=== PATIENT | female | born 1980 | race Caucasian/White ===

== ENCOUNTER 2019-12-24 07:00 | Outpatient (CLI) | payer OTHER, SELFPAY ==
[2019-12-24 08:01] LABS: Alanine Aminotransferase 69 U/L (4-35); Albumin Level 4.5 g/dL (3.5-5.1); Alkaline Phosphatase 94 U/L (38-126); Aspartate Amino Transferase 39 U/L (14-36); Bilirubin,Total 0.4 mg/dL (0.2-1.3); Blood Urea Nitrogen 12 mg/dL (7-17); Calcium 9.6 mg/dL (8.4-10.2); Carbon Dioxide 29 mmol/L (22-30); Chloride 102 mmol/L (98-107); Cholesterol 136 mg/dL (0-200); Estimated Glomerular Filt Rate > 60; Glucose 97 mg/dL (65-105); HDL Direct 41 mg/dL; Potassium 3.9 mmol/L (3.4-5.0); Sodium 141 mmol/L (137-145); Triglycerides 58 mg/dL (<150)
[2019-12-24 08:11] LABS: LDL Cholesterol Direct 84 mg/dL
== END 2019-12-24 07:01 | disposition home or self-care (01) ==
PROVIDERS: PCP Family Medicine; Visit Provider Family Medicine
DX: Z00.00 Encounter for general adult medical examination without abnormal findings (principal)
CPT/HCPCS: 36415; 80053; 80061

== ENCOUNTER 2019-12-25 06:57 | Outpatient (CLI) | payer OTHER, SELFPAY ==
[2019-12-25 07:36] LABS: Basophils Absolute Auto 0.1 K/mm3 (0.0-0.1); Eosinophils Absolute Auto 0.2 K/mm3 (0-0.3); Eosinophils Percent Auto 3.2 % (0-4.4); Hematocrit 40.3 % (37.0-47.0); Hemoglobin 13.3 g/dL (12.0-15.0); Immature Granulocyte Absolute 0.01 K/mm3 (0.00-0.031); Immature Granulocyte Percent A 0.1 % (0-0.5); Lymphocytes Absolute Auto 2.17 K/mm3 (0.9-3.2); Lymphocytes Percent Auto 29.8 % (18.3-44.2); Mean Corpuscular Hemoglobin 28.4 pg (26-34); Mean Corpuscular Volume 85.9 fl (80-100); Mean Platelet Volume 10.1 fl (7.4-10.4); Monocytes Absolute Auto 0.6 K/mm3 (0.1-0.6); Neutrophils Absolute Auto 4.2 K/mm3 (1.3-6.7); Neutrophils Percent Auto 57.9 % (45.5-73.1); Platelet Count Result 332 k/mm3 (150-375); Red Blood Count 4.69 M/mm3 (4.2-5.4); Red Cell Distribution Width 12.8 % (11.5-14.5); White Blood Count 7.3 K/mm3 (4.5-10.0)
== END 2019-12-25 06:58 | disposition home or self-care (01) ==
PROVIDERS: PCP Family Medicine; Visit Provider Family Medicine
DX: Z00.00 Encounter for general adult medical examination without abnormal findings (principal)
CPT/HCPCS: 36415; 85025

== ENCOUNTER → 2020-05-26 15:47 | Outpatient (CLI) | payer OTHER, SELFPAY ==
--- NOTE | ~2020-05-26 | MM_ITS ---
EXAMINATION: MM screening [facility] BI w yomaira HISTORY: Screening mammogram TECHNIQUE: Craniocaudal and mediolateral oblique 3-D tomosynthesis images were obtained and synthetic 2-D images were generated. CAD analysis was submitted and interpreted. COMPARISON: Comparison to multiple prior studies sequentially, with oldest reviewed study dated 06/2017. BREAST PARENCHYMAL COMPOSITION: There are scattered areas of fibroglandular density. FINDINGS: There is no evidence of suspicious mass, calcification, or architectural distortion to sugg est malignancy in either breast. There has been no suspicious interval change. IMPRESSION: 1. No mammographic evidence of malignancy. 2. Recommend routine screening mammography in one year. BI-RADS Category 1: Negative Reviewed, dictated and finalized at location A.
== END ==
PROVIDERS: PCP Family Medicine; Visit Provider Obstetrics & Gynecology
DX: Z12.31 Encounter for screening mammogram for malignant neoplasm of breast (principal)
CPT/HCPCS: 77063; 77067

== ENCOUNTER 2020-08-13 09:21 | Outpatient (CLI) | payer OTHER, SELFPAY ==
[2020-08-13 09:43] LABS: Basophils Absolute Auto 0.1 K/mm3 (0.0-0.1); Basophils Percent Auto 0.6 % (0.2-1.2); Eosinophils Absolute Auto 0.1 K/mm3 (0-0.3); Eosinophils Percent Auto 1.5 % (0-4.4); Hematocrit 36.9 % (37.0-47.0); Hemoglobin 12.4 g/dL (12.0-15.0); Immature Granulocyte Absolute 0.03 K/mm3 (0.00-0.031); Immature Granulocyte Percent A 0.4 % (0-0.5); Lymphocytes Absolute Auto 2.23 K/mm3 (0.9-3.2); Lymphocytes Percent Auto 27.2 % (18.3-44.2); Mean Corpuscular HGB Conc 33.6 g/dl (32-36); Mean Corpuscular Volume 86.4 fl (80-100); Mean Platelet Volume 9.4 fl (7.4-10.4); Monocytes Absolute Auto 0.8 K/mm3 (0.1-0.6); Monocytes Percent Auto 9.4 % (2.6-8.5); Neutrophils Percent Auto 60.9 % (45.5-73.1); Platelet Count Result 368 k/mm3 (150-375); Red Blood Count 4.27 M/mm3 (4.2-5.4); Red Cell Distribution Width 12.7 % (11.5-14.5); White Blood Count 8.2 K/mm3 (4.5-10.0)
[2020-08-13 10:20] LABS: Alanine Aminotransferase 21 U/L (4-35); Albumin Level 4.5 g/dL (3.5-5.1); Alkaline Phosphatase 78 U/L (38-126); Anion Gap 9 mmol/L (8-16); Aspartate Amino Transferase 27 U/L (14-36); Bilirubin,Total 0.3 mg/dL (0.2-1.3); Blood Urea Nitrogen 15 mg/dL (7-17); Calcium 9.7 mg/dL (8.4-10.2); Carbon Dioxide 29 mmol/L (22-30); Chloride 103 mmol/L (98-107); Estimated Glomerular Filt Rate > 60; Glucose 81 mg/dL (65-105); Magnesium 2.3 mg/dL (1.6-2.3); Potassium 3.9 mmol/L (3.4-5.0); Sodium 141 mmol/L (137-145)
== END 2020-08-13 09:22 | disposition home or self-care (01) ==
PROVIDERS: PCP Family Medicine; Visit Provider Family Medicine
DX: R25.3 Fasciculation (principal); R74.01 Elevation of levels of liver transaminase levels
CPT/HCPCS: 36415; 80053; 82248; 83735; 85025

== ENCOUNTER 2020-08-21 22:05 | Emergency (ER) | payer OTHER, SELFPAY ==
[2020-08-21 22:07] VITALS: BP 143/68; PULSE 96; RESP 17; TEMP 36.6; O2SAT 100
[2020-08-21 22:18] VITALS: BP 133/81; PULSE 83; RESP 16; TEMP 36.9; O2SAT 100
--- NOTE | 2020-08-21 23:06 | ED.NEUROSD ---
HPI - Neuro Symptoms/Deficit General Chief Complaint: Neuro Symptoms/Deficit Stated Complaint: twitching all over Time Seen by Provider: 08/21/20 22:34 Source: patient Mode of arrival: ambulatory Limitations: no limitations History of Present Illness HPI Narrative: 39-year-old female She notes that for a couple weeks she has been experiencing muscle twitching and fasciculations She reports that this involves both arms both legs and facial and periocular muscles at various times There is no weakness She cannot identify any triggers such as stress or alcohol or caffeine or decongestant use They are self-limited and there is never any alteration in consciousness such as with a seizure with any of the episodes There are no visual symptoms She came in the ER today because of an episode that seemed to be more localized in the right arm and associated with some paresthesias on the right side which is now resolved She is consulted with her primary care doctor and 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 about this and has had some lab tests done which cannot be accessed here but which she understands to be normal She is supposed to be referred to neurology but states that her doctor wanted to wait a few more days Her only medications are for hypertension and a statin Related Data Home Medications Medication Instructions Recorded Confirmed amlodipine 5 mg PO DAILY 08/21/20 08/21/20 lisinopril-hydrochlorothiazide 1 tablet PO DAILY 08/21/20 norgestrel-ethinyl estradiol 1 tablet PO DAILY 08/21/20 [Low-Ogestrel (28)] Allergies Allergy/AdvReac Type Severity Reaction Status Date / Time diphenoxylate Allergy Intermediate SWELLING Unverified 04/23/19 09:53 OF JOINTS cefaclor Allergy Unknown Verified 01/23/18 16:05 codeine Allergy Unknown Verified 03/17/17 13:24 Sulfa (Sulfonamide Allergy Unknown Verified 03/17/17 13:24 Antibiotics) Review of Systems Review of Systems: All systems reviewed & are unremarkable except as noted in HPI and below Constitutional: Constitutional: Denies chills, Denies fatigue, Denies fever(s), Denies headache(s) and Denies night sweats Eyes: Eyes: Denies change in vision, Denies loss of vision and Denies other visual disturbances ENT: Denies headache(s), Denies hoarseness, Denies nasal congestion and Denies sore throat Cardiovascular: Cardiovascular: Denies chest pain, Denies leg edema, Denies palpitations and Denies dyspnea Respiratory: Respiratory: Denies cough and Denies dyspnea Gastrointestinal: Gastrointestinal: Denies diarrhea and Denies vomiting Genitourinary: Genitourinary: Denies urinary frequency Musculoskeletal: Musculoskeletal: Denies abnormal gait, Denies back pain, Denies myalgias, Denies deformity, Denies joint swelling, Denies muscle weakness and Denies numbness Integumentary/Breasts: Skin/Breast: Denies rash, Denies unusual bruising and Denies wounds Neurologic: Denies abnormal gait, Denies headache(s), Denies focal weakness, Denies loss of vision and Reports numbness Psychiatric: Psychiatric: Reports no additional psychiatric complaints Endocrine: Endocrine: Denies fatigue and Denies palpitations Hematologic/Lymphatic: Hematologic/Lymphatic: Denies easy bleeding and Denies easy bruising Allergic/Immunologic: Allergic/Immunologic: Denies wheezing PMFSH Family History Family History (Updated 03/30/19 @ 16:01 by DOCTOR UNKNOWN) Other Family history of allergic disorder Family history of cardiovascular disease Family history of malignant neoplasm Hypertension Social History Social History Smoking status: Never smoker Alcohol intake: current Gender identity (if verbalized by the patient): Female Exam Const: General: healthy appearing, no acute distress and alert Nutritional Appearance: well nourished Orientation/consciousness: patient oriented x3 Limitations: no limitations HENMT: Head: normocephalic and atraumatic Ears: external ears
[2020-08-21 23:20] LABS: Basophils Absolute Auto 0.1 K/mm3 (0.0-0.1); Basophils Percent Auto 0.6 % (0.2-1.2); Eosinophils Absolute Auto 0.2 K/mm3 (0-0.3); Eosinophils Percent Auto 1.4 % (0-4.4); Hematocrit 37.9 % (37.0-47.0); Hemoglobin 12.6 g/dL (12.0-15.0); Immature Granulocyte Absolute 0.03 K/mm3 (0.00-0.031); Immature Granulocyte Percent A 0.3 % (0-0.5); Lymphocytes Absolute Auto 2.44 K/mm3 (0.9-3.2); Lymphocytes Percent Auto 23.6 % (18.3-44.2); Mean Corpuscular HGB Conc 33.2 g/dl (32-36); Mean Corpuscular Hemoglobin 28.6 pg (26-34); Mean Corpuscular Volume 86.1 fl (80-100); Mean Platelet Volume 9.5 fl (7.4-10.4); Monocytes Percent Auto 9.7 % (2.6-8.5); Neutrophils Absolute Auto 6.7 K/mm3 (1.3-6.7); Neutrophils Percent Auto 64.4 % (45.5-73.1); Platelet Count Result 376 k/mm3 (150-375); Red Cell Distribution Width 12.6 % (11.5-14.5); White Blood Count 10.4 K/mm3 (4.5-10.0)
[2020-08-21 23:34] LABS: Alanine Aminotransferase 18 U/L (4-35); Albumin Level 4.3 g/dL (3.5-5.1); Alkaline Phosphatase 73 U/L (38-126); Anion Gap 9 mmol/L (8-16); Aspartate Amino Transferase 24 U/L (14-36); Bilirubin,Total 0.2 mg/dL (0.2-1.3); Blood Urea Nitrogen 15 mg/dL (7-17); Calcium 9.7 mg/dL (8.4-10.2); Carbon Dioxide 30 mmol/L (22-30); Chloride 103 mmol/L (98-107); Estimated CRCL calculation 98 ml/min; Estimated Glomerular Filt Rate > 60; Glucose 101 mg/dL (65-105); Magnesium 2.2 mg/dL (1.6-2.3); Potassium 3.9 mmol/L (3.4-5.0); Sodium 142 mmol/L (137-145)
[2020-08-22 00:17] VITALS: BP 128/80; PULSE 77; RESP 14; TEMP 36.6; O2SAT 100
== END 2020-08-22 00:18 | disposition home or self-care (01) ==
PROVIDERS: Emergency Provider Emergency Medicine; PCP Family Medicine
DX: R25.3 Fasciculation (principal); I10 Essential (primary) hypertension
CPT/HCPCS: 36415; 80053; 83735; 84436; 84443; 85025; 99283

== ENCOUNTER 2020-09-23 09:25 | Outpatient (NON) | payer OTHER, SELFPAY ==
[2020-09-24 14:04] LABS: SARS-CoV-2 RNA PCR Negative
== END 2020-09-23 09:26 ==
LOC: ANHCOVIDDT 09:26
PROVIDERS: PCP Family Medicine; Visit Provider Family Medicine
DX: R51.9 Headache, unspecified (principal); Z20.828 Contact with and (suspected) exposure to other viral communicable diseases
CPT/HCPCS: 87635; C9803; U0003

== ENCOUNTER 2020-10-01 01:09 | Day surgery (SDC) | payer OTHER, SELFPAY ==
[2020-09-30 15:38] VITALS: BMI 35.4
--- NOTE | 2020-09-30 16:05 | PM.IMHP ---
H&P: HPI History of Present Illness Date/Time: 09/30/20 16:05 Chief complaint: Excessive Bleeding Narrative: Charlette Montero is a 39 year old female She will to be 3-year-old 0 through 2 status post section x2 who is admitted for hysteroscopy D&C. She has had heavy bleeding for quite some time. She had been on oral contraceptives. Taken thinking she control means or ever she began bleeding for 13 the period. The last 6 days she has been on the pill and is not moving and she continues to bleed with clots. Risks and benefits of this procedure reviewed in full Review of Systems Review of Systems: All systems reviewed & are unremarkable except as noted in HPI and below PMFSH Family History Family History Other Family history of allergic disorder Family history of cardiovascular disease Family history of malignant neoplasm Hypertension Social History Social History Smoking status: Never smoker Alcohol intake: current Drinks per week: 3 Substance use: never Living arrangements: with family Additional living arrangements comments: SPOUSE AND 3 CHILDREN Gender identity (if verbalized by the patient): Female Spiritual care concerns: No Meds Home Medications and Allergies Home Medications Medication Instructions Recorded Confirmed Type amlodipine 5 mg PO QAM 08/21/20 09/30/20 History lisinopril-hydrochlorothiazide 1 tablet PO QAM 08/21/20 09/30/20 History ezetimibe 10 mg PO QAM 09/30/20 09/30/20 History loratadine [Claritin] 10 mg PO DAILY 09/30/20 09/30/20 History multivitamin [Multi-Vitamin] 1 tablet PO DAILY 09/30/20 09/30/20 History norethindrone-ethin estradiol 1 tablet PO DAILY 09/30/20 09/30/20 History [Nortrel (28)] Allergies Allergy/AdvReac Type Severity Reaction Status Date / Time cefaclor Allergy Unknown Rash Verified 09/30/20 15:33 Sulfa (Sulfonamide Allergy Unknown Rash Verified 09/30/20 15:33 Antibiotics) diphenoxylate AdvReac Intermediate SWELLING Unverified 09/30/20 15:33 OF JOINTS ciprofloxacin AdvReac Unknown JOINT Verified 09/30/20 15:33 SWELLING Exam Const: General: no acute distress Eyes: General: appearance normal, both eyes and all related structures Neck: Neck: supple and no JVD Thyroid: thyroid normal Resp: Effort & Inspection: normal respiratory effort Auscultation: clear to auscultation bilaterally Cardio: Rate: regular rate Rhythm: regular rhythm GI: Inspection: non-distended GI Palp: Yes Soft to palpation, No Tenderness to palpation present (GI) and No Guarding due to palpation present (GI) Auscultation: normal bowel sounds : General: Yes bladder normal to inspection External Female Exam: normal external appearance Speculum Exam - Cervix: normal appearance of the cervix Bimanual exam- vagina & uterus: enlarged Bimanual Exam- Adnexa, other: other ( heavy bleeding present) Skin: General skin exam: no rashes or lesions noted Extrem: General: normal to inspection and no edema Psych: Mental Status: mental status grossly normal Affect: normal affect Assessment and Plan Additional Plan the. Impression: IV bleeding a pressure medical her curetting min Plan: Hysteroscopy / dilatation curettage
[2020-10-01 06:20] VITALS: BP 138/70; PULSE 96; RESP 20; TEMP 36.1; O2SAT 98
--- NOTE | 2020-10-01 06:25 | WPDHPUPDATE1 ---
History and Physical Update Update Date/Time: 10/01/20 06:25 History and Physical has been reviewed, including an updated exam of the patient. There are NO changes in the patient's condition. Risks, benefits, and alternatives have been discussed and questions answered. Patient agrees to proceed with procedure.
--- NOTE | 2020-10-01 06:39 | WPDANESEPPF ---
Anes - Initial Pre Proc Eval Procedure: Operation Date: 10/01/20 07:30 Proposed Procedures p Hysteroscopy, Dilation And Curettage - Mark Guerrero MD Date/Time: 10/01/20 06:40 Surgeon: Mark Guerrero MD Pre Op Diagnosis: Excessive Bleeding Patient Data Age: 39 Gender: F Height: 1.75 m Weight: 109 kg Allergies Allergy/AdvReac Type Severity Reaction Status Date / Time cefaclor Allergy Unknown Rash Verified 09/30/20 15:33 Sulfa (Sulfonamide Allergy Unknown Rash Verified 09/30/20 15:33 Antibiotics) diphenoxylate AdvReac Intermediate SWELLING Unverified 09/30/20 15:33 OF JOINTS ciprofloxacin AdvReac Unknown JOINT Verified 09/30/20 15:33 SWELLING Home Medications Medication Instructions Recorded Confirmed Type amlodipine 5 mg PO QAM 08/21/20 09/30/20 History lisinopril-hydrochlorothiazide 1 tablet PO QAM 08/21/20 09/30/20 History ezetimibe 10 mg PO QAM 09/30/20 09/30/20 History loratadine [Claritin] 10 mg PO DAILY 09/30/20 09/30/20 History multivitamin [Multi-Vitamin] 1 tablet PO DAILY 09/30/20 09/30/20 History norethindrone-ethin estradiol 1 tablet PO DAILY 09/30/20 09/30/20 History [Nortrel / (28)] hydrocodone-acetaminophen [[place]] 1 tablet PO Q4H PRN #20 tablet 10/01/20 Rx Patient hx anesthesia problems: none Family hx anesthesia problems: none PMFSH Past Medical History Medical History (Updated 10/01/20 @ 06:40 by Ruiz Alvares DO) Anxiety Hyperlipidemia Hypertension Palpitations Surgical History Surgical History (Updated 10/01/20 @ 06:40 by Ruzi Alvares DO) History of Family History Family History Other Family history of allergic disorder Family history of cardiovascular disease Family history of malignant neoplasm Hypertension Social History Social History Smoking status: Never smoker Alcohol intake: current Drinks per week: 3 Substance use: never Living arrangements: with family Additional living arrangements comments: SPOUSE AND 3 CHILDREN Gender identity (if verbalized by the patient): Female Spiritual care concerns: No Anes - Eval Final PreProcedure Day of Procedure 10/01/20 06:40 Patient weight: obese Heart: regular rate and rhythm Lungs: clear to auscultation and normal air movement Airway: Mallampati scale class II Neurological: alert and oriented Last oral intake: >/= 8 hours ASA classification: II Emergent: no Anesthetic plan: proceed Anesthesia type and monitoring: general GIVS and standard monitoring Informed Consent: The patient's anesthetic plan and its attendant risks and benefits were discussed with the patient/family/POA. Questions were solicited and answers provided to the satisfaction of the patient/family/POA.
[2020-10-01] MEDS: LACTATED RINGERS 1,000 ML 30 ML IV CONT (06:45)
[2020-10-01] MEDS: ACETAMINOPHEN 500 MG TABLET 1000 MG PO (06:52)
[2020-10-01] MEDS: LIDOCAINE HCL 1% LOCAL INJ 20 ML VIAL 10 ML INFILTRATE (07:28)
--- NOTE | 2020-10-01 07:37 | PM.PROC ---
Procedure Note - Detailed Date of procedure: 10/01/20 Pre-op diagnosis: Excessive Bleeding Surgeon: Mark Guerrero MD Postop diagnosis: Excessive bleeding next Procedure: Hysteroscopy / dilatation curettage EBL: 25cc Anesthesia: IV sedation and local Complications: None Findings: Large clots and the uterus sounded to 10cm. Thick endometrial tissue. Description of procedure: Patient was prepped and draped in normal sterile fashion placed in the dorsal lithotomy position. Under excellent IV sedation weighted speculum placed in posterior fornix of vagina. Anterior lip of the cervix grasped with single-tooth tenaculum and 2.5cc 1% xylocaine anesthesia placed at 2, 4, 8, 10:00 a.m. of the cervix. Uterus sounded to 10cm. Serial dilatation with fragmented dilators performed followed by passage of the 5mm visualizing hysteroscope. Normal saline was used as visualizing medium. Large clots were seen and the is generally very bloody anterior of the endometrium. The uterus was then scraped over the entire 360? STEPH large amount of clots thick endometrial tissue. When a good grating sound was heard the procedure was finished. All sponge, needle, instrument counts were correct. Blood loss estimated at25cc. There were no immediate complications
[2020-10-01 07:44] VITALS: BP 102/48; PULSE 97; RESP 12; O2SAT 97
[2020-10-01 08:10] VITALS: BP 115/66; PULSE 78; RESP 12; O2SAT 97
[2020-10-01 08:35] VITALS: BP 116/67; PULSE 75; RESP 14
== END 2020-10-01 08:48 | disposition home or self-care (01) ==
PROVIDERS: PCP Family Medicine; Visit Provider Obstetrics & Gynecology
PROC: 0U5B8ZZ Destruction of Endometrium, Via Natural or Artificial Opening Endoscopic (ICD-10-PCS; CPT 58563; principal; 2020-10-01 07:30)
DX: N93.9 Abnormal uterine and vaginal bleeding, unspecified (principal); N85.8 Other specified noninflammatory disorders of uterus; E78.5 Hyperlipidemia, unspecified; I10 Essential (primary) hypertension; F41.9 Anxiety disorder, unspecified; E66.9 Obesity, unspecified; Z68.35 Body mass index [BMI] 35.0-35.9, adult
CPT/HCPCS: 58558; 88305; A9270; J2250; J2704; J3010; J7030; J7120

== ENCOUNTER 2020-10-27 07:04 | Outpatient (NON) | payer OTHER, SELFPAY ==
[2020-10-27 22:00] LABS: SARS-CoV-2 RNA PCR Negative
== END 2020-10-27 07:05 ==
PROVIDERS: PCP Family Medicine; Visit Provider Family Medicine
DX: R05 Cough (principal); Z20.828 Contact with and (suspected) exposure to other viral communicable diseases
CPT/HCPCS: 87635; C9803; U0003

== ENCOUNTER → 2020-12-26 06:51 | Outpatient (CLI) | payer OTHER, SELFPAY ==
[2020-12-26 21:58] LABS: SARS-CoV-2 RNA PCR Positive
== END ==
PROVIDERS: PCP Family Medicine; Visit Provider Family Medicine
DX: U07.1 COVID-19 (principal)
CPT/HCPCS: C9803; U0003; U0005

== ENCOUNTER 2021-01-20 07:28 | Outpatient (CLI) | payer OTHER, SELFPAY ==
[2021-01-20 07:53] LABS: Basophils Absolute Auto 0.1 K/mm3 (0.0-0.1); Basophils Percent Auto 0.6 % (0.2-1.2); Eosinophils Absolute Auto 0.2 K/mm3 (0-0.3); Eosinophils Percent Auto 1.7 % (0-4.4); Hematocrit 35.1 % (37.0-47.0); Hemoglobin 11.4 g/dL (12.0-15.0); Immature Granulocyte Absolute 0.02 K/mm3 (0.00-0.031); Immature Granulocyte Percent A 0.2 % (0-0.5); Lymphocytes Absolute Auto 2.32 K/mm3 (0.9-3.2); Lymphocytes Percent Auto 26.3 % (18.3-44.2); Mean Corpuscular HGB Conc 32.5 g/dl (32-36); Mean Corpuscular Hemoglobin 26.3 pg (26-34); Mean Corpuscular Volume 81.1 fl (80-100); Mean Platelet Volume 9.4 fl (7.4-10.4); Monocytes Absolute Auto 0.8 K/mm3 (0.1-0.6); Monocytes Percent Auto 9.2 % (2.6-8.5); Neutrophils Absolute Auto 5.5 K/mm3 (1.3-6.7); Platelet Count Result 412 k/mm3 (150-375); Red Blood Count 4.33 M/mm3 (4.2-5.4); Red Cell Distribution Width 13.6 % (11.5-14.5); White Blood Count 8.8 K/mm3 (4.5-10.0)
[2021-01-20 08:05] LABS: Alanine Aminotransferase 29 U/L (4-35); Alkaline Phosphatase 71 U/L (38-126); Anion Gap 7 mmol/L (8-16); Aspartate Amino Transferase 24 U/L (14-36); Bilirubin,Total 0.2 mg/dL (0.2-1.3); Blood Urea Nitrogen 14 mg/dL (7-17); Carbon Dioxide 28 mmol/L (22-30); Chloride 105 mmol/L (98-107); Cholesterol 182 mg/dL (0-200); Estimated Glomerular Filt Rate > 60; Glucose 95 mg/dL (65-105); HDL Direct 38 mg/dL; Potassium 3.8 mmol/L (3.4-5.0); Sodium 140 mmol/L (137-145); Triglycerides 122 mg/dL (<150)
[2021-01-20 08:16] LABS: LDL Cholesterol Direct 112 mg/dL
== END 2021-01-20 07:29 | disposition home or self-care (01) ==
PROVIDERS: PCP Internal Medicine; Visit Provider Internal Medicine
DX: E78.5 Hyperlipidemia, unspecified (principal); I10 Essential (primary) hypertension; Z00.00 Encounter for general adult medical examination without abnormal findings
CPT/HCPCS: 36415; 80053; 80061; 85025

== ENCOUNTER 2021-02-10 07:04 | Outpatient (CLI) | payer OTHER, SELFPAY ==
[2021-02-10 08:31] LABS: Iron 88 ug/dL (37-170)
[2021-02-10 08:43] LABS: Percent Iron Saturation 22 % (20-50)
[2021-02-10 09:09] LABS: Ferritin 7.29 ng/mL (6.24-137)
[2021-02-13 13:39] LABS: Lyme Disease Ab (IgM), Blot Negative (Negative); Lyme Disease Ab(IgG), Blot Negative (Negative)
== END 2021-02-10 07:05 | disposition home or self-care (01) ==
PROVIDERS: PCP Internal Medicine; Visit Provider Internal Medicine
DX: R25.3 Fasciculation (principal); D64.9 Anemia, unspecified
CPT/HCPCS: 36415; 82607; 82728; 83540; 83550; 86617

== ENCOUNTER 2021-02-28 09:54 | Observation (INO) | payer OTHER, SELFPAY ==
[2021-02-28] VITALS (11 sets, daily range): BP systolic 86–135; BP diastolic 45–72; PULSE 77–112; RESP 11–18; TEMP 36.4–37.2; O2SAT 96–100
--- NOTE | 2021-02-28 10:17 | ED.GENADULT ---
HPI - General Adult General Chief complaint: Vaginal Bleeding Stated complaint: Vaginal Bleeding Time Seen by Provider: 02/28/21 10:01 Source: patient Mode of arrival: ambulatory Limitations: no limitations History of Present Illness HPI narrative: Patient presents for evaluation of vaginal bleeding. She has a history of fibroids and underwent D&C last year. She is a planned hysterectomy in March of this year. It was initially planned for November of this year but she needed to reschedule due to some family issues. She is currently on OC to help with bleeding. In the past she was offered tranexamic acid, which she declined. She is not anticoagulated and not on any NSAIDs. She says bleeding has been present for the last 10 days. She is going through 1 pad per hour. She did have some pelvic cramping earlier in the week but that has since resolved. She also reports some rectal pain. No fever, chills, nausea, vomiting. Surgical history positive for x2. Denies any urinary symptoms or vaginal discharge. She is sexual monogamous with her . 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 Related Data Home Medications Medication Instructions Recorded Confirmed amlodipine 5 mg PO QAM 08/21/20 10/01/20 lisinopril-hydrochlorothiazide 1 tablet PO QAM 08/21/20 10/01/20 ezetimibe 10 mg PO QAM 09/30/20 10/01/20 loratadine [Claritin] 10 mg PO DAILY 09/30/20 10/01/20 multivitamin [Multi-Vitamin] 1 tablet PO DAILY 09/30/20 10/01/20 norethindrone-ethin estradiol 1 tablet PO DAILY 09/30/20 10/01/20 [Nortrel 1/35 (28)] Allergies Allergy/AdvReac Type Severity Reaction Status Date / Time cefaclor Allergy Unknown Rash Verified 02/28/21 10:13 Sulfa (Sulfonamide Allergy Unknown Rash Verified 02/28/21 10:13 Antibiotics) diphenoxylate AdvReac Intermediate SWELLING Verified 02/28/21 10:13 OF JOINTS ciprofloxacin AdvReac Unknown JOINT Verified 02/28/21 10:13 SWELLING Review of Systems Review of Systems: Narrative: CONSTITUTIONAL: Denies fever, chills, or sweats. EYES: Denies visual changes, redness, or discharge. ENT: Denies rhinorrhea, congestion, sore throat, or otalgia. CARDIOVASCULAR: Denies chest pain, palpitations, or edema. RESPIRATORY: Denies cough or dyspnea. GASTROINTESTINAL: Denies abdominal pain, nausea, vomiting, or diarrhea. Reports rectal pain GENITOURINARY: Denies dysuria or hematuria. Reports vaginal bleeding without any vaginal discharge SKIN: Denies rash or itching. MUSCULOSKELETAL: Denies back pain, joint pain, or myalgia. NEUROLOGIC: Denies headache, numbness, dizziness, or weakness. PSYCHIATRIC: Denies anxiety or depression. [facility] Past Medical History Medical History Anxiety Fibroids Hyperlipidemia Hypertension Palpitations Surgical History Surgical History History of Family History Family History Other Family history of allergic disorder Family history of cardiovascular disease Family history of malignant neoplasm Hypertension Social History Social History Smoking status: Never smoker Alcohol intake: current Drinks per week: 3 Substance use: never Additional living arrangements comments: SPOUSE AND 3 CHILDREN Gender identity (if verbalized by the patient): Female Spiritual care concerns: No Exam Narrative: Exam Narrative: GENERAL: Well-appearing, well-nourished, and in no acute distress. HEAD: Normocephalic, atraumatic. EYES: PERRLA and EOMI. ENT: Nares clear, no rhinorrhea or epistaxis. Mucous membranes moist. Oropharynx without tonsillar hypertrophy exudate or other lesions. Bilateral TMs pearly gómez nonbulging NECK: [place]
--- NOTE | 2021-02-28 10:32 | ECG_ITS ---
Measurements Intervals [place] Rate: 98 P: 57 WA: 163 QRS: -35 QRSD: 93 T: 33 QT: 328 QTc: 420 Interpretive Statements SINUS RHYTHM WITH SINUS ARRHYTHMIA LEFT AXIS DEVIATION DELAYED PRECORDIAL R/S TRANSITION BORDERLINE ECG Electronically Signed On 02-28-2021 12:07:50 CDT by Anton Hidalgo D.O.
[2021-02-28 10:39] LABS: Basophils Absolute Auto 0.1 K/mm3 (0.0-0.1); Basophils Percent Auto 0.5 % (0.2-1.2); Eosinophils Absolute Auto 0.1 K/mm3 (0-0.3); Eosinophils Percent Auto 1.2 % (0-4.4); Hematocrit 25.5 % (37.0-47.0); Hemoglobin 8.1 g/dL (12.0-15.0); Immature Granulocyte Absolute 0.03 K/mm3 (0.00-0.031); Immature Granulocyte Percent A 0.3 % (0-0.5); Lymphocytes Absolute Auto 2.25 K/mm3 (0.9-3.2); Lymphocytes Percent Auto 21.9 % (18.3-44.2); Mean Corpuscular HGB Conc 31.8 g/dl (32-36); Mean Corpuscular Hemoglobin 26.6 pg (26-34); Mean Corpuscular Volume 83.6 fl (80-100); Mean Platelet Volume 9.4 fl (7.4-10.4); Monocytes Absolute Auto 0.9 K/mm3 (0.1-0.6); Monocytes Percent Auto 8.9 % (2.6-8.5); Neutrophils Absolute Auto 6.9 K/mm3 (1.3-6.7); Neutrophils Percent Auto 67.2 % (45.5-73.1); Platelet Count Result 310 k/mm3 (150-375); Red Blood Count 3.05 M/mm3 (4.2-5.4); Red Cell Distribution Width 14.7 % (11.5-14.5); White Blood Count 10.3 K/mm3 (4.5-10.0)
[2021-02-28 10:47] LABS: Alanine Aminotransferase 20 U/L (4-35); Albumin Level 4.1 g/dL (3.5-5.1); Alkaline Phosphatase 72 U/L (38-126); Anion Gap 5 mmol/L (8-16); Aspartate Amino Transferase 23 U/L (14-36); Bilirubin,Total 0.2 mg/dL (0.2-1.3); Blood Urea Nitrogen 12 mg/dL (7-17); Calcium 9.1 mg/dL (8.4-10.2); Carbon Dioxide 28 mmol/L (22-30); Chloride 106 mmol/L (98-107); Estimated CRCL calculation 118 ml/min; Estimated Glomerular Filt Rate > 60; Glucose 88 mg/dL (65-105); Potassium 3.8 mmol/L (3.4-5.0); Sodium 139 mmol/L (137-145)
[2021-02-28 10:55] LABS: INR 0.9
[2021-02-28 10:56] LABS: Partial Thromboplastin Time 27.5 SECONDS (22.3-36.8)
[2021-02-28 10:59] LABS: Add Urine Microscopic? YES; Appearance Urine Cloudy (Clear); Bilirubin Urine Negative (Negative); Blood Urine 3+ (Negative); Color Urine Amber (Yellow); Glucose Urine UA Negative (Negative); Ketones Urine Negative (Negative); Leukocyte Esterase Ur 1+ LEU/UL (Negative); Nitrate Urine Negative (Negative); Protein Urine 2+ mg/dL (Negative); RBC Urine >75 /hpf (0-2); Specific Grav Ur 1.015 (1.001-1.035); Urobilinogen Urine Negative mg/dL (<2.0); WBC Urine >75 /hpf
--- NOTE | 2021-02-28 11:43 | WPDANESEPP ---
Anes - Eval Pre Procedure Procedure: hysteroscopy d and c Date/Time: 02/28/21 11:43 Surgeon: dean adrian Pre Op Diagnosis: Vaginal Bleeding Patient Data Age: 40 Gender: F Height: 1.75 m Weight: 102 kg Last Vital Signs Temp 36.5 C 02/28/21 10:13 Pulse 112 H 02/28/21 10:13 Resp 16 02/28/21 10:13 BP 135/72 02/28/21 10:13 Pulse Ox 100 02/28/21 10:13 Allergies Allergy/AdvReac Type Severity Reaction Status Date / Time cefaclor Allergy Unknown Rash Verified 02/28/21 10:13 Sulfa (Sulfonamide Allergy Unknown Rash Verified 02/28/21 10:13 Antibiotics) diphenoxylate AdvReac Intermediate SWELLING Verified 02/28/21 10:13 OF JOINTS ciprofloxacin AdvReac Unknown JOINT Verified 02/28/21 10:13 SWELLING Home Medications Medication Instructions Recorded Confirmed Type amlodipine 5 mg PO QAM 08/21/20 10/01/20 History lisinopril-hydrochlorothiazide 1 tablet PO QAM 08/21/20 10/01/20 History ezetimibe 10 mg PO QAM 09/30/20 10/01/20 History loratadine [Claritin] 10 mg PO DAILY 09/30/20 10/01/20 History multivitamin [Multi-Vitamin] 1 tablet PO DAILY 09/30/20 10/01/20 History norethindrone-ethin estradiol 1 tablet PO DAILY 09/30/20 10/01/20 History [Nortrel (28)] hydrocodone-acetaminophen [[place]] 1 tablet PO Q4H PRN #20 tablet 10/01/20 Rx Laboratory Tests 02/28/21 02/28/21 02/28/21 10:29 10:29 10:29 WBC 10.3 K/mm3 H K/mm3 (4.5-10.0) RBC 3.05 M/mm3 L M/mm3 (4.2-5.4) Hgb 8.1 g/dL L D g/dL (12.0-15.0) Hct 25.5 % L % (37.0-47.0) MCV 83.6 fl fl (80-100) MCH 26.6 pg pg (26-34) MCHC 31.8 g/dl L g/dl (32-36) RDW 14.7 % H % (11.5-14.5) Plt Count 310 k/mm3 k/mm3 (150-375) MPV 9.4 fl fl (7.4-10.4) Immature Gran % (Auto) 0.3 % % (0-0.5) Neut % (Auto) 67.2 % % (45.5-73.1) Lymph % (Auto) 21.9 % % (18.3-44.2) [place] % (Auto) 8.9 % H % (2.6-8.5) Eos % (Auto) 1.2 % % (0-4.4) Baso % (Auto) 0.5 % % (0.2-1.2) Lymph # (Auto) 2.25 K/mm3 K/mm3 (0.9-3.2) [place]er # (Auto) 0.9 K/mm3 H K/mm3 (0.1-0.6) Eos # (Auto) 0.1 K/mm3 K/mm3 (0-0.3) Baso # (Auto) 0.1 K/mm3 K/mm3 (0.0-0.1) Abs Immat Gran (auto) 0.03 K/mm3 K/mm3 (0.00-0.031) Absolute Neuts (auto) 6.9 K/mm3 H K/mm3 (1.3-6.7) Absolute Nucleated RBC 0.0 K/mm3 K/mm3 (0.0-0.012) Nucleated RBC % 0.0 % % (0.0-0.2) PT 13.0 Seconds Seconds (11.1-14.7) INR 0.9 APTT 27.5 SECONDS SECONDS (22.3-36.8) Sodium 139 mmol/L mmol/L (137-145) Potassium 3.8 mmol/L mmol/L (3.4-5.0) Chloride 106 mmol/L mmol/L (98-107) Carbon Dioxide 28 mmol/L mmol/L (22-30) Anion Gap 5 mmol/L L mmol/L (8-16) BUN 12 mg/dL mg/dL (7-17) Creatinine 0.70 mg/dL mg/dL (0.7-1.0) Estim Creat Clear Calc 118 ml/min ml/min Estimated GFR > 60 (59 - ) Glucose 88 mg/dL mg/dL (65-105) Calcium 9.1 mg/dL mg/dL (8.4-10.2) Total Bilirubin 0.2 mg/dL mg/dL (0.2-1.3) AST 23 U/L U/L (14-36) ALT 20 U/L U/L (4-35) Alkaline Phosphatase 72 U/L U/L (38-126) Total Protein 7.0 g/dL g/dL (6.3-8.2) Albumin 4.1 g/dL g/dL (3.5-5.1) Urine Color Urine Appearance Urine pH Ur Specific [place] Urine Protein Urine Glucose (UA) Urine Ketones Ur Blood (Man) Urine Nitrate Urine Bilirubin Urine Urobilinogen Leukocyte Esterase Rfl Urine RBC Urine WBC 02/28/21 10:46 WBC RBC Hgb Hct MCV MCH MCHC RDW Plt Count
--- NOTE | 2021-02-28 12:11 | PM.IMHP ---
H&P: HPI History of Present Illness Date/Time: 02/28/21 12:11 40-year-old multiparous patient admitted through the ER with vaginal bleeding. She has known uterine fibroids and is scheduled for hysterectomy in March. control pills have been unsuccessful in controlling her bleeding. Her hemoglobin has dropped 3 points and she is bleeding actively. She will undergo hysteroscopy dilatation curettage. Risks and benefits were reviewed in the ER Chief Complaint: Vaginal bleeding with decreased hemoglobin Review of Systems Review of Systems: All systems reviewed & are unremarkable except as noted in HPI and below PMFSH Past Medical History Medical History Anxiety Fibroids Hyperlipidemia Hypertension Palpitations Surgical History Surgical History History of Family History Family History Other Family history of allergic disorder Family history of cardiovascular disease Family history of malignant neoplasm Hypertension Social History Social History Smoking status: Never smoker Alcohol intake: current Drinks per week: 3 Substance use: never Additional living arrangements comments: SPOUSE AND 3 CHILDREN Gender identity (if verbalized by the patient): Female Spiritual care concerns: No Meds Home Medications and Allergies Home Medications Medication Instructions Recorded Confirmed Type amlodipine 5 mg PO QAM 08/21/20 10/01/20 History lisinopril-hydrochlorothiazide 1 tablet PO QAM 08/21/20 10/01/20 History ezetimibe 10 mg PO QAM 09/30/20 10/01/20 History loratadine [Claritin] 10 mg PO DAILY 09/30/20 10/01/20 History multivitamin [Multi-Vitamin] 1 tablet PO DAILY 09/30/20 10/01/20 History norethindrone-ethin estradiol 1 tablet PO DAILY 09/30/20 10/01/20 History [Nortrel (28)] hydrocodone-acetaminophen [[place]] 1 tablet PO Q4H PRN #20 tablet 10/01/20 Rx Allergies Allergy/AdvReac Type Severity Reaction Status Date / Time cefaclor Allergy Unknown Rash Verified 02/28/21 10:13 Sulfa (Sulfonamide Allergy Unknown Rash Verified 02/28/21 10:13 Antibiotics) diphenoxylate AdvReac Intermediate SWELLING Verified 02/28/21 10:13 OF JOINTS ciprofloxacin AdvReac Unknown JOINT Verified 02/28/21 10:13 SWELLING Vital Signs Vital Signs - 24 hr 02/28/21 10:13 Temperature 97.7 F Pulse Rate 112 H Respiratory Rate 16 Blood Pressure 135/72 Pulse Oximetry 100 Exam Const: General: no acute distress Eyes: General: appearance normal, both eyes and all related structures Neck: Neck: supple and no JVD Thyroid: thyroid normal Resp: Effort & Inspection: normal respiratory effort Auscultation: clear to auscultation bilaterally Cardio: Rate: regular rate Rhythm: regular rhythm GI: Inspection: non-distended GI Palp: Yes Soft to palpation, No Tenderness to palpation present (GI) and No Guarding due to palpation present (GI) Auscultation: normal bowel sounds : External Female Exam: normal external appearance Speculum Exam - Vagina: vaginal bleeding Speculum Exam - Cervix: normal appearance of the cervix Bimanual exam- vagina & uterus: enlarged Bimanual Exam- Adnexa, other: normal adnexae Skin: General skin exam: no rashes or lesions noted Extrem: General: normal to inspection and no edema Psych: Mental Status: mental status grossly normal Affect: normal affect H&P: Results Labs Labs: Short CBC 02/28/21 Range/Units 10:29 WBC 10.3 H (4.5-10.0) K/mm3 Hgb 8.1 L D (12.0-15.0) g/dL Hct 25.5 L (37.0-47.0) % Plt Count 310 (150-375) k/mm3 [facility] 02/28/21 10:29 Sodium 139 Potassium 3.8 Chloride 106 Carbon Dioxide 28 BUN 12 Creatinine 0.70 Glucose 88 Calcium 9.1 Liver Function 02/28/21 R
--- NOTE | 2021-02-28 12:56 | WPDANESEFPP ---
Anes - Eval Final PreProcedure Day of Procedure 02/28/21 12:56 Patient weight: obese Heart: regular rate and rhythm Lungs: clear to auscultation Airway: Mallampati scale class II Neurological: alert and oriented Last oral intake: >/= 8 hours ASA classification: II Emergent: yes Anesthesia type and monitoring: general GIVS and standard monitoring Informed Consent: The patient's anesthetic plan and its attendant risks and benefits were discussed with the patient/family/POA. Questions were solicited and answers provided to the satisfaction of the patient/family/POA.
[2021-02-28] MEDS: LACTATED RINGERS 1,000 ML 30 ML IV CONT (13:00)
--- NOTE | 2021-02-28 13:02 | WPDHPUPDATE1 ---
History and Physical Update Update Date/Time: 02/28/21 13:02 History and Physical has been reviewed, including an updated exam of the patient. There are NO changes in the patient's condition. Risks, benefits, and alternatives have been discussed and questions answered. Patient agrees to proceed with procedure.
--- NOTE | 2021-02-28 13:19 | SUR.OPER ---
100ml ns in, 80ml ns out. aware
--- NOTE | 2021-02-28 13:25 | P.OP_ITS ---
Procedure Note - Detailed Date of procedure: 02/28/21 Pre-op diagnosis: Vaginal Bleeding Surgeon: Mark Guerrero MD Postop diagnosis: Vaginal bleeding Procedure: Hysteroscopy/dilatation curettage Anesthesia: IV sedation and local EBL: 25cc Findings: Several large clots in the uterus thick and thick endometrial tissue. Complications: None Description of procedure: The patient was prepped draped in the normal sterile fashion and placed in the dorsal lithotomy position. Under excellent IV sedat ion weighted speculum placed in posterior fornix vagina. Anterior lip of the cervix was grasped with single-tooth tenaculum and 2.5cc of 1% xylocaine anesthesia placed at 2, 4, 8, 10:00 a.m. of the cervix. Several clots removed from the vagina and uterus sounded to 9cm. Thick endometrial tissue and clots were seen and these were scraped over the entire 360? after removal of 5 5mm visualizing hysteroscope. Bleeding was estimated 25cc and the clots appeared to be all clear patient tolerated procedure well. All sponge, needle, instrument counts were correct. There were no immediate complications
--- NOTE | 2021-02-28 14:49 | SUR.PHASEII ---
Feeling light headed and nausea. Bp lower than was. Reclined chair to supine.
--- NOTE | 2021-02-28 15:10 | SUR.PHASEI ---
Called Dr. Au regarding patient's bleeding and lightheadedness and low BP issues. Orders received. Spoke with patient and called Kayode her .
--- NOTE | 2021-02-28 15:32 | PC.NURSE ---
This patient, Charlette Montero, was received from OP recovery per wheelchair to room 289. Patient/family oriented to unit policies and routines
[2021-02-28] MEDS: ACETAMINOPHEN 500 MG TABLET 1000 MG PO (17:30)
[2021-03-01] VITALS (7 sets, daily range): BP systolic 110–126; BP diastolic 62–76; PULSE 90–113; RESP 15–20; TEMP 36.8–37.3; O2SAT 98
[2021-03-01] MEDS: IBUPROFEN 600 MG TABLET PO (00:23)
[2021-03-01 05:53] LABS: Hematocrit 20.7 % (37.0-47.0); Hemoglobin 6.7 g/dL (12.0-15.0)
--- NOTE | 2021-03-01 08:48 | PM.OBPNVD ---
OB - PN: Subj Subjective Date/time seen: 03/01/21 08:48 Interval history: feeling weak Patient comments: no complaints and pain well controlled OB - PN: Obj Data Labs CBC & Chem 7: 03/01/21 04:56 02/28/21 10:29 Labs: Laboratory Results - last 24 hr 02/28/21 02/28/21 02/28/21 10:29 10:29 10:29 WBC 10.3 H RBC 3.05 L Hgb 8.1 L D Hct 25.5 L MCV 83.6 MCH 26.6 MCHC 31.8 L RDW 14.7 H Plt Count 310 MPV 9.4 Immature Gran % (Auto) 0.3 Neut % (Auto) 67.2 Lymph % (Auto) 21.9 [place] % (Auto) 8.9 H Eos % (Auto) 1.2 Baso % (Auto) 0.5 Lymph # (Auto) 2.25 [place] # (Auto) 0.9 H Eos # (Auto) 0.1 Baso # (Auto) 0.1 Abs Immat Gran (auto) 0.03 Absolute Neuts (auto) 6.9 H Absolute Nucleated RBC 0.0 Nucleated RBC % 0.0 PT 13.0 INR 0.9 APTT 27.5 Sodium 139 Potassium 3.8 Chloride 106 Carbon Dioxide 28 Anion Gap 5 L BUN 12 Creatinine 0.70 Estim Creat Clear Calc 118 Estimated GFR > 60 Glucose 88 Calcium 9.1 Total Bilirubin 0.2 AST 23 ALT 20 Alkaline Phosphatase 72 Total Protein 7.0 Albumin 4.1 Urine Color Urine Appearance Urine pH Ur Specific [place] Urine Protein Urine Glucose (UA) Urine Ketones Ur Blood (Man) Urine Nitrate Urine Bilirubin Urine Urobilinogen Leukocyte Esterase Rfl Urine RBC Urine WBC 02/28/21 03/01/21 10:46 04:56 WBC RBC Hgb 6.7 L* Hct 20.7 L* MCV MCH MCHC RDW Plt Count MPV Immature Gran % (Auto) Neut % (Auto) Lymph % (Auto) [place] % (Auto) Eos % (Auto) Baso % (Auto) Lymph # (Auto) [place] # (Auto) Eos # (Auto) Baso # (Auto) Abs Immat Gran (auto) Absolute Neuts (auto) Absolute Nucleated RBC Nucleated RBC % PT INR APTT Sodium Potassium Chloride Carbon Dioxide Anion Gap BUN Creatinine Estim Creat Clear Calc Estimated GFR Glucose Calcium Total Bilirubin AST ALT Alkaline Phosphatase Total Protein Albumin Urine Color [place] Urine Appearance Cloudy H Urine pH 6.0 Ur Specific [place] 1.015 Urine Protein 2+ H Urine Glucose (UA) Negative Urine Ketones Negative Ur Blood (Man) 3+ H Urine Nitrate Negative Urine Bilirubin Negative Urine Urobilinogen Negative Leukocyte Esterase Rfl 1+ H Urine RBC >75 H Urine WBC >75 H OB - PN A/P Plan day: 1 Comments: offered prbcs. patient will let me know Time Spent With Patient Time: Total time spent is greater than 50% in coordination of care (as documented) at patient's floor/unit and/or counseling patient: Time with patient: less than 15 minutes Review of Systems Review of Systems: All systems reviewed & are unremarkable except as noted in HPI and below Exam Const: General: no acute distress Eyes: General: appearance normal, both eyes and all related structures Neck: Neck: supple and no JVD Thyroid: thyroid normal Resp: Effort & Inspection: normal respiratory effort Auscultation: clear to auscultation bilaterally Cardio: Rate: regular rate Rhythm: regular rhythm GI: Inspection: non-distended GI Palp: Yes Soft to palpation, No Tenderness to palpation present (GI) and No Guarding due to palpation present (GI) Auscultation: normal bowel sounds : General: Yes bladder normal to palpation External Female Exam: normal external appearance Speculum Exam - Vagina: normal vaginal discharge and No vaginal bleeding Speculum Exam - Cervix: nontender Bimanual exam- vagina & uterus: bladder normal to palpation and No Cervical tenderness present OB/external & speculum: No vaginal bleeding Skin: General skin exam: no rashes or lesions noted Extrem: General: normal to inspection and no edema Psych: Mental Status: mental status grossly normal Affect: normal affect
[2021-03-01] MEDS: AZITHROMYCIN 250 MG TABLET 500 MG PO (09:22)
[2021-03-01] MEDS: SODIUM CHLORIDE 0.9% IV 250 ML 30 ML IV CONT (11:58)
--- NOTE | 2021-03-01 14:36 | PC.NURSE ---
Pt discharged, RN recommended her comes to pick her up. Pt's car is here because she drove herself to the ER yesterday. She lives 5 minutes away in [place] and chooses to drive herself home. Pt is not dizzy or lightheaded.
--- NOTE | 2021-03-03 15:18 | PM.DS ---
DS: Admitting Diagnosis Admitting Diagnosis Admitting Diagnosis: vaginalbleeding/anemia DS: Summary Hospital Course Hospital Course: the patient was admitted through the emergency department complaining of heavy vaginal bleeding. She had a known history of fibroid uterus with heavy bleeding and the in season the past. She underwent a D and C with benign-appearing endometrium. She was somewhat symptomatic and was watched overnight. Hemoglobin dropped from 8-6.7 on the a.m. prior to discharge. She received unit of blood and felt much better. She was discharged home on oral contraceptive and iron replacement. She is to follow up in 1-2 days is scheduled to undergo a future hysterectomy. Time Spent with Patient Time attestation: Total time spent providing and/or coordinating discharge services: Exam Const: General: no acute distress Eyes: General: appearance normal, both eyes and all related structures Neck: Neck: supple and no JVD Thyroid: thyroid normal Resp: Effort & Inspection: normal respiratory effort Auscultation: clear to auscultation bilaterally Cardio: Rate: regular rate Rhythm: regular rhythm GI: Inspection: non-distended GI Palp: Yes Soft to palpation, No Tenderness to palpation present (GI) and No Guarding due to palpation present (GI) Auscultation: normal bowel sounds : General: Yes bladder normal to palpation External Female Exam: normal external appearance Speculum Exam - Vagina: normal vaginal discharge and No vaginal bleeding Speculum Exam - Cervix: nontender Bimanual exam- vagina & uterus: bladder normal to palpation and No Cervical tenderness present OB/external & speculum: No vaginal bleeding Skin: General skin exam: no rashes or lesions noted Extrem: General: normal to inspection and no edema Psych: Mental Status: mental status grossly normal Affect: normal affect DS: Data Data Completed and Pending Pending studies at discharge: Pending at discharge 02/28/21 13:17 Surgical [PTH] Routine Discharge Plan Discharge Attending physician on discharge: Mark Guerrero Consulting providers: Anton Hidalgo Discharging Clinician: Mark Guerrero Patient Disposition: Home, Self-Care Activity: pelvic rest Diet: regular Discharge Instructions: Some Complications to Watch for: ? Excessive vaginal drainage (more than on pad an hour). Additional Instructions: ? Expect some vaginal spotting for 2-4 days. ? Nothing vaginally (i.e. douching, intercourse, tampons) until follow up visit. Continue iron supplement daily Take control pill twice a day for 3 days Call the office tomorrow and schedule a follow up appointment for Tuesday or Tuesday of this week. If ear continues to ache, let the office know when you call tomorrow for your appointment and the doctor will call in a prescription for additional antibiotics. Patient Instructions: Antibiotic Form, Dilation and Curettage (DC) Stand Alone Forms: General Discharge Instructions Follow-up/Referrals: Mark Guerrero MD [Physician] - Antonio,Denise Neri MD [Primary Care Provider] - Discharge Medications: Continued lisinopril-hydrochlorothiazide 20-12.5 mg tablet 1 tablet PO QAM RF: 0 amlodipine 5 mg tablet 5 mg PO QAM RF: 0 multivitamin Tablet 1 tablet PO DAILY RF: 0 loratadine [Claritin] 10 mg Tablet 10 mg PO DAILY RF: 0 Nortrel 1/35 (28) 1-35 mg-mcg tablet 1 tablet PO BID RF: 0 ezetimibe 10 mg tablet 10 mg PO QAM RF: 0 No Action ferrous gluconate 324 mg (38 mg iron) tablet 324 mg PO DAILY RF: 0 hydrocodone-acetaminophen 5-325 mg tablet 1 - 2 tablet PO Q6H PRN (Reason: pain) Qty: 30 RF: 0 Date of admission: 02/28/21 15:12 Primary Care Provider: BrandinDenise Admitting Provider: Mark Guerrero Attending physician on admission: Mark Guerrero Condition: Stable
== END 2021-03-01 14:36 | disposition home or self-care (01) ==
LOC: ANHED 11:48 → ANHSURGERY 11:50 → ANHOB2 15:37
PROVIDERS: Admitting Provider Obstetrics & Gynecology; Emergency Provider Nurse Practitioner; PCP Internal Medicine; Visit Provider Obstetrics & Gynecology
PROC: 0U5B8ZZ Destruction of Endometrium, Via Natural or Artificial Opening Endoscopic (ICD-10-PCS; CPT 58563; principal; 2021-02-28 13:00)
DX: D25.9 Leiomyoma of uterus, unspecified (principal); N93.8 Other specified abnormal uterine and vaginal bleeding; D64.9 Anemia, unspecified; I10 Essential (primary) hypertension
CPT/HCPCS: 58558; 36415; 36430; 80053; 81001; 81025; 85014; 85018; 85025; 85610; 85730; 86850; 86900; 86901; 86920; 87086; 88305; 93005; 96360; 99285; A9270; G0378; J2704; J3010; J7030; J7050; J7120; P9016

== ENCOUNTER 2021-03-02 13:27 | Inpatient (IN) | payer OTHER, SELFPAY ==
[2021-03-02] VITALS (8 sets, daily range): BP systolic 121–138; BP diastolic 63–77; PULSE 88–109; RESP 13–20; TEMP 35.7–36.8; O2SAT 100; BMI 35.2
--- NOTE | ~2021-03-02 | US_ITS ---
EXAMINATION: US venous doppler [facility] EXAM DATE: 03/03/2021 11:43 INDICATION: Left hip pain. TECHNIQUE: Multiple grayscale, color flow and Doppler images of the left lower extremity deep venous system were obtained and reviewed. There is no prior study for comparison. FINDINGS: The left common femoral, femoral and profunda veins demonstrate normal color flow, respirat ory variation, augmentation and compressibility. Compressibility, color flow confirmed within the le ft popliteal, posterior tibial, peroneal, and greater saphenous veins. IMPRESSION: No left lower extremity deep venous thrombosis Reviewed, dictated and finalized at location A.
--- NOTE | ~2021-03-02 | US_ITS ---
EXAMINATION: US pelvic complete w TV DATE: 03/03/2021 11:43 INDICATION: Pelvic pain Comparison:No prior studies for comparison. TECHNIQUE: Multiple transabdominal and endovaginal sonographic images of the pelvis performed. FINDINGS: The uterus measures 9.5 x 4.8 x 6.1 cm. The endometrium is thickened and heterogeneous varghese uring 2.1 cm. The ovaries are not visualized. There is free fluid in the pelvis. There are no abnormal masses seen on either side. IMPRESSION: 1. Thickened heterogeneous endometrium measuring 2.1 cm. Reviewed, dictated and finalized at location B.
[2021-03-02 14:24] LABS: Basophils Absolute Auto 0.1 K/mm3 (0.0-0.1); Basophils Percent Auto 0.6 % (0.2-1.2); Eosinophils Absolute Auto 0.1 K/mm3 (0-0.3); Eosinophils Percent Auto 0.5 % (0-4.4); Hematocrit 23.4 % (37.0-47.0); Hemoglobin 7.6 g/dL (12.0-15.0); Immature Granulocyte Absolute 0.04 K/mm3 (0.00-0.031); Immature Granulocyte Percent A 0.3 % (0-0.5); Lymphocytes Absolute Auto 2.76 K/mm3 (0.9-3.2); Lymphocytes Percent Auto 23.7 % (18.3-44.2); Mean Corpuscular HGB Conc 32.5 g/dl (32-36); Mean Corpuscular Hemoglobin 26.9 pg (26-34); Mean Corpuscular Volume 82.7 fl (80-100); Mean Platelet Volume 9.3 fl (7.4-10.4); Monocytes Absolute Auto 1.2 K/mm3 (0.1-0.6); Monocytes Percent Auto 10.3 % (2.6-8.5); Neutrophils Absolute Auto 7.5 K/mm3 (1.3-6.7); Neutrophils Percent Auto 64.6 % (45.5-73.1); Platelet Count Result 356 k/mm3 (150-375); Red Blood Count 2.83 M/mm3 (4.2-5.4); Red Cell Distribution Width 14.6 % (11.5-14.5); White Blood Count 11.7 K/mm3 (4.5-10.0)
--- NOTE | 2021-03-02 15:09 | ED.FEMALEGU ---
HPI - Female Genitourinary General Chief complaint: Vaginal Bleeding Stated complaint: vaginal bleeding Time Seen by Provider: 03/02/21 15:02 History of Present Illness HPI Narrative: Heavy vaginal bleeding for the past 2 weeks. D&C on 12/31. Required admission and blood transfusion. She has had some continued bleeding. Saw Dr. Lam this morning and is scheduled for an ablation tomorrow. This afternoon the bleeding is heavy. She is passing clots. She feels very dizzy and fatigued. Related Data Home Medications Medication Instructions Recorded Confirmed amlodipine 5 mg PO QAM 08/21/20 02/28/21 lisinopril-hydrochlorothiazide 1 tablet PO QAM 08/21/20 02/28/21 Nortrel 1/35 (28) 1 tablet PO DAILY 09/30/20 02/28/21 ezetimibe 10 mg PO QAM 09/30/20 02/28/21 loratadine [Claritin] 10 mg PO DAILY 09/30/20 02/28/21 multivitamin 1 tablet PO DAILY 09/30/20 02/28/21 ferrous gluconate 324 mg PO DAILY 03/02/21 03/02/21 Allergies Allergy/AdvReac Type Severity Reaction Status Date / Time cefaclor Allergy Unknown Rash Verified 02/28/21 10:13 Sulfa (Sulfonamide Allergy Unknown Rash Verified 02/28/21 10:13 Antibiotics) diphenoxylate AdvReac Intermediate SWELLING Verified 02/28/21 10:13 OF JOINTS ciprofloxacin AdvReac Unknown JOINT Verified 02/28/21 10:13 SWELLING Review of Systems Review of Systems: All systems reviewed & are unremarkable except as noted in HPI and below Constitutional: Constitutional: Reports fatigue Eyes: Eyes: Reports as per HPI ENT: Reports system reviewed and no additional complaints, except as documented Cardiovascular: Cardiovascular: Denies chest pain Respiratory: Respiratory: Denies dyspnea Gastrointestinal: Gastrointestinal: Denies nausea and Denies vomiting Genitourinary: Genitourinary: Reports as per HPI Musculoskeletal: Musculoskeletal: Reports no additional musculoskeletal complaints Neurologic: Reports dizziness, Denies syncope and Reports weakness [facility] Past Medical History Medical History Anxiety Fibroids Hyperlipidemia Hypertension Palpitations Surgical History Surgical History History of Family History Family History Other Family history of allergic disorder Family history of cardiovascular disease Family history of malignant neoplasm Hypertension Social History Social History Smoking status: Never smoker Alcohol intake: current Drinks per week: 3 Substance use: never Additional living arrangements comments: SPOUSE AND 3 CHILDREN Gender identity (if verbalized by the patient): Female Spiritual care concerns: No Exam Const: General: no acute distress, alert and ill appearing Orientation/consciousness: patient oriented x3 HENMT: Head: normal to inspection Neck: Neck: normal visual inspection Resp: Effort & Inspection: normal respiratory effort Auscultation: clear to auscultation bilaterally Cardio: Rate: regular rate Rhythm: regular rhythm GI: GI Palp: Yes Soft to palpation and No Tenderness to palpation present (GI) Skin: General skin exam: pallor Neuro: General: patient oriented x3 and moves all extremities Speech: normal speech Extrem: General: normal to inspection Course Vital Signs Vital signs: Vital Signs Temperature 36.8 C 03/02/21 13:50 Pulse Rate 88 03/02/21 13:50 Respiratory Rate 20 03/02/21 13:50 Blood Pressure 121/69 03/02/21 13:50 Pulse Oximetry 100 03/02/21 13:50 Temperature 36.8 C 03/02/21 13:50 Pulse Rate 103 H 03/02/21 16:29 Respiratory Rate 13 03/02/21 16:29 Blood Pressure 138/74 03/02/21 16:29 Pulse Oximetry 100 03/02/21 16:29 MDM - Female Genitourinary MDM Narrative Medical decision making narrative: Patshayna ramos
--- NOTE | 2021-03-02 18:02 | PC.NURSE ---
This patient, Charlette Montero, was admitted to Medical Room 348-01. Patient/family oriented to hospital policies and general routines including ID bracelet, bed and alarms, visiting hours, pain management, procedures, bathroom and other care routines, personal items, smoking policy, room service/diet, and visiting hours. Information on how to activate the Rapid Response Team has been discussed. Patient/Family are encouraged to report perceived risks to care and to ask questions if they do not understand what they are told or what they should do.
[2021-03-02] MEDS: SODIUM CHLORIDE 0.9% IV 1,000 ML 999 ML IV CONT (18:05)
[2021-03-02] MEDS: ACETAMINOPHEN 500 MG TABLET 1000 MG PO (20:02)
[2021-03-03] VITALS (19 sets, daily range): BP systolic 109–142; BP diastolic 63–86; PULSE 85–101; RESP 16–20; TEMP 36.1–37.4; O2SAT 95–100
[2021-03-03] MEDS: ACETAMINOPHEN 500 MG TABLET 1000 MG PO (02:51)
[2021-03-03 06:23] LABS: Hemoglobin 6.8 g/dL (12.0-15.0)
[2021-03-03 06:24] LABS: Hematocrit 20.8 % (37.0-47.0)
[2021-03-03] MEDS: HYDROcodone/acetaminophen (*CRX) 5-325 MG TABLET 1 TAB PO (07:19)
--- NOTE | 2021-03-03 08:36 | PM.IMHP ---
H&P: HPI History of Present Illness Date/Time: 03/03/21 08:36 40 y/o with menometrorrhagia and uterine fibroids who had a heavy episode of vaginal bleeding over the weekend leading to a hysteroscopy / D&C and a transfusion of 1 unit of PRBC. She had improvement in her bleeding initially, then it worsened again. She had heavy bleeding yesterday and I asked her to present to the ED. She was admitted for observation overnight. Bleeding has been intermittent, and she now complains of left hip pain radiating down her leg. Hgb dropped to 6.8. She has no SOB or chest pain. Her has had a vasectomy for contraception. She is scheduled for a hysteroscopy, D&C and endometrial ablation this afternoon. Chief Complaint: Heavy bleeding Review of Systems Review of Systems: All systems reviewed & are unremarkable except as noted in HPI and below PMFSH Past Medical History Medical History Anxiety Fibroids Hyperlipidemia Hypertension Palpitations Surgical History Surgical History History of History of D&C Family History Family History Grandparent Family history of cardiovascular disease Bladder cancer Colon cancer Father Lung cancer Hypertension Father No problems noted. Social History Social History Smoking status: Never smoker Alcohol intake: current Drinks per week: 2 Substance use: never Additional living arrangements comments: SPOUSE AND 3 CHILDREN Gender identity (if verbalized by the patient): Female Spiritual care concerns: No Meds Home Medications and Allergies Home Medications Medication Instructions Recorded Confirmed Type amlodipine 5 mg PO QAM 08/21/20 03/02/21 History lisinopril-hydrochlorothiazide 1 tablet PO QAM 08/21/20 03/02/21 History Nortrel 1/35 (28) 1 tablet PO BID 09/30/20 03/02/21 History ezetimibe 10 mg PO QAM 09/30/20 03/02/21 History loratadine [Claritin] 10 mg PO DAILY 09/30/20 03/02/21 History multivitamin 1 tablet PO DAILY 09/30/20 03/02/21 History ferrous gluconate 324 mg PO DAILY 03/02/21 03/02/21 History Allergies Allergy/AdvReac Type Severity Reaction Status Date / Time cefaclor Allergy Unknown Rash Verified 02/28/21 10:13 Sulfa (Sulfonamide Allergy Unknown Rash Verified 02/28/21 10:13 Antibiotics) diphenoxylate AdvReac Intermediate SWELLING Verified 02/28/21 10:13 OF JOINTS ciprofloxacin AdvReac Unknown JOINT Verified 02/28/21 10:13 SWELLING Vital Signs Vital Signs - 24 hr 03/02/21 13:50 03/02/21 14:12 03/02/21 16:29 Temperature 36.8 C Pulse Rate 88 93 103 H Respiratory Rate 20 15 13 Blood Pressure 121/69 128/68 138/74 Pulse Oximetry 100 100 100 03/02/21 18:13 03/02/21 20:44 03/02/21 21:05 Temperature 35.7 C L 36.8 C Pulse Rate 92 109 H 94 Respiratory Rate 18 18 Blood Pressure 138/71 129/63 Pulse Oximetry 100 100 03/02/21 21:06 03/02/21 21:08 03/03/21 00:00 Temperature Pulse Rate 95 Respiratory Rate Blood Pressure 131/77 138/65 Pulse Oximetry 03/03/21 04:00 03/03/21 04:21 03/03/21 08:00 Temperature 36.6 C Pulse Rate 89 86 101 H Respiratory Rate 16 Blood Pressure 129/71 Pulse Oximetry 100 Exam Const: Orientation/consciousness: patient oriented x3 Other: Well-developed, well-nourished female in no acute distress. Neck: Thyroid: thyroid normal Lymphatic: no lymphadenopathy noted (in neck, axilla or inguinal nodes) Resp: Effort & Inspection: normal respiratory effort Auscultation: clear to auscultation bilaterally Cardio: Rate: regular rate Rhythm: regular rhythm Heart sounds: S1 normal heart sound present and S2 normal heart sound present GI: Other: ABD: Soft, nontender, nondistended. No guarding or rebound tenderne
[2021-03-03 12:03] LABS: Hematocrit 18.7 % (37.0-47.0); Hemoglobin 6.1 g/dL (12.0-15.0)
--- NOTE | 2021-03-03 13:15 | PC.NURSE ---
Patient to pre-op per bed. Report to MARIA E Molina. Per blood bank, [facility] is currently preparing blood. RN will assist in administration by picking up blood from blood bank and transporting to pre-op.
[2021-03-03] MEDS: LACTATED RINGERS 1,000 ML 30 ML IV CONT (13:30)
[2021-03-03] MEDS: SODIUM CHLORIDE 0.9% IV 250 ML 30 ML IV CONT (13:40)
--- NOTE | 2021-03-03 13:45 | WPDANESEPPF ---
Anes - Initial Pre Proc Eval Procedure: Operation Date: 03/03/21 14:30 Proposed Procedures p Hysteroscopy, Dilation and Curettage, Kellie Endometrial Ablation - Ángel Lam MD Date/Time: 03/03/21 13:45 Surgeon: Ángel Lam MD Pre Op Diagnosis: Anemia/dysfunctional urterine bleeding Patient Data Age: 40 Gender: F Height: 1.75 m Weight: 108 kg Last Vital Signs Temp 36.6 C 03/03/21 04:21 Pulse 91 03/03/21 12:00 Resp 18 03/03/21 11:59 BP 129/71 03/03/21 04:21 Pulse Ox 97 03/03/21 11:59 Allergies Allergy/AdvReac Type Severity Reaction Status Date / Time cefaclor Allergy Unknown Rash Verified 02/28/21 10:13 Sulfa (Sulfonamide Allergy Unknown Rash Verified 02/28/21 10:13 Antibiotics) diphenoxylate AdvReac Intermediate SWELLING Verified 02/28/21 10:13 OF JOINTS ciprofloxacin AdvReac Unknown JOINT Verified 02/28/21 10:13 SWELLING Home Medications Medication Instructions Recorded Confirmed Type amlodipine 5 mg PO QAM 08/21/20 03/02/21 History lisinopril-hydrochlorothiazide 1 tablet PO QAM 08/21/20 03/02/21 History Nortrel 1/35 (28) 1 tablet PO BID 09/30/20 03/02/21 History ezetimibe 10 mg PO QAM 09/30/20 03/02/21 History loratadine [Claritin] 10 mg PO DAILY 09/30/20 03/02/21 History multivitamin 1 tablet PO DAILY 09/30/20 03/02/21 History ferrous gluconate 324 mg PO DAILY 03/02/21 03/02/21 History Laboratory Tests 03/02/21 03/03/21 03/03/21 14:13 05:55 11:45 WBC 11.7 K/mm3 H K/mm3 (4.5-10.0) RBC 2.83 M/mm3 L M/mm3 (4.2-5.4) Hgb 7.6 g/dL L g/dL 6.8 g/dL L* g/dL 6.1 g/dL L* g/dL (12.0-15.0) (12.0-15.0) (12.0-15.0) Hct 23.4 % L % 20.8 % L* % 18.7 % L* % (37.0-47.0) (37.0-47.0) (37.0-47.0) MCV 82.7 fl fl (80-100) MCH 26.9 pg pg (26-34) MCHC 32.5 g/dl g/dl (32-36) RDW 14.6 % H % (11.5-14.5) Plt Count 356 k/mm3 k/mm3 (150-375) MPV 9.3 fl fl (7.4-10.4) Immature Gran % (Auto) 0.3 % % (0-0.5) Neut % (Auto) 64.6 % % (45.5-73.1) Lymph % (Auto) 23.7 % % (18.3-44.2) [place] % (Auto) 10.3 % H % (2.6-8.5) Eos % (Auto) 0.5 % % (0-4.4) Baso % (Auto) 0.6 % % (0.2-1.2) Lymph # (Auto) 2.76 K/mm3 K/mm3 (0.9-3.2) [place] # (Auto) 1.2 K/mm3 H K/mm3 (0.1-0.6) Eos # (Auto) 0.1 K/mm3 K/mm3 (0-0.3) Baso # (Auto) 0.1 K/mm3 K/mm3 (0.0-0.1) Abs Immat Gran (auto) 0.04 K/mm3 H K/mm3 (0.00-0.031) Absolute Neuts (auto) 7.5 K/mm3 H K/mm3 (1.3-6.7) Absolute Nucleated RBC 0.0 K/mm3 K/mm3 (0.0-0.012) Nucleated RBC % 0.0 % % (0.0-0.2) Blood Type Antibody Screen Crossmatch 03/03/21 11:45 WBC RBC Hgb Hct MCV MCH MCHC RDW Plt Count MPV Immature Gran % (Auto) Neut % (Auto) Lymph % (Auto) [place] % (Auto) Eos % (Auto) Baso % (Auto) Lymph # (Auto) [place] # (Auto) Eos # (Auto) Baso # (Auto) Abs Immat Gran (auto) Absolute Neuts (auto) Absolute Nucleated RBC Nucleated RBC % Blood Type A Positive Antibody Screen Negative Crossmatch See Detail Patient hx anesthesia problems: none Family hx anesthesia problems: none [facility] Past Medical History Medical History (Updated 03/03/21 @ 13:45 by Ruiz Alvares DO) Anxiety Fasciculations patient has daily whole body fasciculations - was told it was not a seizure and does not lose consciousness Fibroids Hyperlipidemia Hypertension Palpitations 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
--- NOTE | 2021-03-03 15:10 | WPDHPUPDATE1 ---
History and Physical Update Update Date/Time: 03/03/21 15:10 History and Physical has been reviewed, including an updated exam of the patient. There are NO changes in the patient's condition. Risks, benefits, and alternatives have been discussed and questions answered. Patient agrees to proceed with procedure.
--- NOTE | 2021-03-03 16:04 | PM.PROC ---
Procedure Note - Detailed Date of procedure: 03/04/21 Pre-op diagnosis: Anemia/dysfunctional urterine bleeding Heavy episode of vaginal bleeding Menometrorrhagia Anemia due to acute blood loss Fibroid uterus Post-op diagnosis: same Procedure performed: Hysteroscopy Dilation and sharp curettage Endometrial ablation Description of procedure: The patient was taken to the operating room where she was prepared and draped in the usual sterile fashion in the dorsal lithotomy position. The bladder was drained with a red rubber catheter. A sterile speculum was placed into the vagina. The anterior lip of the cervix was grasped with single-tooth tenaculum. Ten mL of 1% lidocaine was administered in a paracervical block. The cervix was then gently dilated using Hegar dilators until an 8 mm dilator could be passed. Hysteroscopy was performed using sterile saline as a distention medium. Findings are as noted above. Sharp curettage was then performed, and endometrial curettings were collected on a Telfa pad and passed off to be sent to pathology. Finally, the the Kellie device was advanced and endometrial ablation commenced without difficulty. The device was withdrawn and a second look was taken using the hysteroscope. Excellent coverage of the endometrial cavity was noted. The tenaculum was removed. Hemostasis was excellent. Sponge, lap, needle and instrument counts were correct. The patient was awakened and taken to the recovery room in stable condition. I was present and scrubbed through the entire procedure. Implants: None Anesthesia: MAC and local (1% lidocaine) Surgeon: Ángel Lam MD Estimated blood loss (mL): 50 Drains: No Packing: No Pathology: yes (endometrial curettings) Complications: None Condition: stable Disposition: PACU Findings: Uterus sounded to 9 cm with a cervical length of 3 cm, giving a subtracted uterine cavity length of 6 cm. Both tubal ostia seen. No obvious endometrial abnormality.
[2021-03-03] MEDS: fentaNYL CITRATE INJ (*CRX) 100 MCG/2 ML VIAL 25 MCG IV PUSH ×4 (16:14→16:31)
--- NOTE | 2021-03-03 16:56 | PC.NURSE ---
Patient returned from OR per bed. Report received from MARIA E Okeefe.
[2021-03-03] MEDS: HYDROcodone/acetaminophen (*CRX) 10-325 MG TABLET 1 TAB PO (17:09)
[2021-03-03] MEDS: KETOROLAC 30 MG/ML VIAL (*BKC) IV PUSH ×2 (17:50→23:28)
[2021-03-03 18:11] LABS: Hematocrit 21.5 % (37.0-47.0); Hemoglobin 7.1 g/dL (12.0-15.0)
[2021-03-04 05:00] VITALS: BP 137/75; PULSE 103; RESP 18; TEMP 36.6; O2SAT 97
[2021-03-04] MEDS: KETOROLAC 30 MG/ML VIAL (*BKC) IV PUSH ×2 (05:34→11:12)
[2021-03-04] MEDS: EZETIMIBE 10 MG TABLET PO (08:53)
[2021-03-04] MEDS: FERROUS GLUCONATE 324 MG TABLET PO (08:53)
[2021-03-04] MEDS: lisinopriL 20 MG TABLET PO (08:53)
[2021-03-04] MEDS: MULTIVITAMINS THERAPEUTIC TAB (*BKC) 1 TABLET PO (08:53)
[2021-03-04] MEDS: amLODIPine BESYLATE 5 MG TABLET PO (08:54)
[2021-03-04] MEDS: hydroCHLOROthiazide 12.5 MG CAPSULE PO (08:54)
--- NOTE | 2021-03-04 09:19 | WPDANESPN ---
Anes - Prog Note Post-Op Date/Time: 03/04/21 09:19 Cardiovascular status: normal Respiratory status: normal Airway patency: baseline Mental status: baseline Post-Op hydration status: normal Vital Signs: Last Vital Signs Temp 36.6 C 03/04/21 05:00 Pulse 103 H 03/04/21 05:00 Resp 18 03/04/21 05:00 BP 137/75 03/04/21 05:00 Pulse Ox 97 03/04/21 05:00 Pain Score (VAS): 1 I/O: Intake & Output 03/03/21 03/04/21 03/04/21 23:59 07:59 15:59 Intake Total 400 300 240 Output Total 100 800 250 Balance 300 -500 -10 Laboratory Tests 03/03/21 17:59 03/03/21 03/03/21 03/03/21 11:45 11:45 17:59 Hgb 6.1 L* 7.1 L Hct 18.7 L* 21.5 L Blood Type A Positive Antibody Screen Negative Crossmatch See Detail Post-procedural complaints: none Patient Feedback: Patient satisfied with anesthetic care.
--- NOTE | 2021-03-04 11:46 | PM.GYNPNOP ---
AUTOMOTIVE TITLE CLERK - A/P Postoperative Procedures: Procedures Operation Date: 03/03/21 14:30 Actual Procedure Side Surgeon p Hysteroscopy, Dilation and Curettage, Kellie Endometrial Ablation Not Applicable Ángel Lam MD A: POD#1, doing well. P: Home to continue iron supplementation. F/u next week as scheduled. Time Spent With Patient Time with patient: less than 15 minutes AUTOMOTIVE TITLE CLERK- PN:Subj Post-Op Subjective Date/time seen: 03/04/21 11:46 Interval history: Was kept overnight for pain control. She feels much better this morning. Bleeding / discharge is minimal. Tolerating diet. Voiding. Would like to go home. Exam Narrative: Exam Narrative: AVSS I/O OK ABD soft, nontender. EXT nontender AUTOMOTIVE TITLE CLERK - PN: Obj Data Vital Signs Vital Signs: Vital Signs - 24 hr 03/03/21 11:59 03/03/21 12:00 03/03/21 13:18 Temperature 37.4 C Pulse Rate 95 91 90 Respiratory Rate 18 18 Blood Pressure 120/64 Pulse Oximetry 97 100 03/03/21 13:45 03/03/21 14:00 03/03/21 14:51 Temperature 37.4 C 37.2 C 37.1 C Pulse Rate 90 92 87 Respiratory Rate 18 16 16 Blood Pressure 120/64 125/69 128/66 Pulse Oximetry 100 100 100 03/03/21 16:03 03/03/21 16:15 03/03/21 16:30 Temperature 37.2 C Pulse Rate 94 91 93 Respiratory Rate 20 20 16 Blood Pressure 109/63 133/86 121/73 Pulse Oximetry 100 98 97 03/03/21 16:35 03/03/21 16:56 03/03/21 17:10 Temperature 36.1 C L 36.4 C L Pulse Rate 87 85 94 Respiratory Rate 20 16 16 Blood Pressure 132/73 133/73 142/80 H Pulse Oximetry 95 100 99 03/03/21 17:38 03/03/21 18:43 03/03/21 20:23 Temperature 36.1 C L 36.6 C 36.1 C L Pulse Rate 93 85 86 Respiratory Rate 18 16 16 Blood Pressure 136/76 140/70 135/68 Pulse Oximetry 100 96 98 03/04/21 05:00 Temperature 36.6 C Pulse Rate 103 H Respiratory Rate 18 Blood Pressure 137/75 Pulse Oximetry 97 Intake/Output Intake/Output: Intake & Output 03/01/21 03/02/21 03/03/21 03/04/21 23:59 23:59 23:59 23:59 Intake Total 1000 1370 540 Output Total 400 1150 1050 Balance 600 220 -510 Meds/Results Medications: Active Medications Generic Name Dose Route Start Last Admin Trade Name Freq PRN Reason Stop Dose Admin Hydrocodone Bitart/Acetaminophen 1 tab 03/03/21 16:40 Hydrocodone/Acetaminophen (*Crx) 5-325 Mg Tablet PO Q3H PRN Moderate Pain (4-6) Hydrocodone Bitart/Acetaminophen 1 tab 03/03/21 16:40 03/03/21 17:09 Hydrocodone/Acetaminophen (*Crx) 10-325 Mg Tablet PO 1 tab Q3H PRN Administration Pain Rated 7-10 Amlodipine Besylate 5 mg 03/04/21 09:00 03/04/21 08:54 Amlodipine Besylate 5 Mg Tablet PO 5 mg QAM BRITTANIE Administration Ezetimibe 10 mg 03/04/21 09:00 03/04/21 08:53 Ezetimibe 10 Mg Tablet PO 10 mg QAM BRITTANIE Administration Ferrous Gluconate 324 mg 03/04/21 09:00 03/04/21 08:53 Ferrous Gluconate 324 Mg Tablet PO 324 mg DAILY BRITTANIE Administration Hydrochlorothiazide 12.5 mg 03/04/21 09:00 03/04/21 08:54 Hydrochlorothiazide 12.5 Mg Capsule PO 12.5 mg QAM BRITTANIE Administration Ibuprofen 600 mg 03/03/21 16:40 Ibuprofen 600 Mg Tablet PO Q6H PRN Cramping Ketorolac Tromethamine 30 mg 03/03/21 17:30 03/04/21 11:12 Ketorolac 30 Mg/Ml Vial (*Bkc) IV PUSH 03/04/21 18:00 30 mg Q6H BRITTANIE Administration Lisinopril 20 mg 03/04/21 09:00 03/04/21 08:53 Lisinopril 20 Mg Tablet PO 20 mg QAM BRITTANIE Administration Loratadine 10 mg 03/04/21 09:00 Loratadine 10 Mg Tablet PO DAILY [facility] Multivitamins Therapeutic 1 tablet 03/04/21 09:00 03/04/21 08:53 Multivitamins Therapeutic Tab (*Bkc) PO 1 tablet DAILY BRITTANIE Administration Radiology Results: ITS Impressions Pelvic/Transvag US 03/03/21 11:46 IMPRESSION: 1. Thickened heterogeneous endometrium measuring 2.1 cm. Venous Doppler Study 03/03/21 11:47 IMPRESSION: No left lower extremity deep venous thrombosis Labs CBC & Chem 7: 04
--- NOTE | 2021-03-04 11:49 | PM.DS ---
DS: Admitting Diagnosis Admitting Diagnosis Admitting Diagnosis: Heavy episode of vaginal bleeding Fibroid uterus Menometrorrhagia Anemia resulting from acute blood loss DS: Discharge Diagnosis Discharge Diagnosis (1) Fibroid: Code(s): D21.9 - Benign neoplasm of connective and other soft tissue, unspecified Status: Acute (2) Anemia: Qualifiers: Other causes of anemia: acute posthemorrhagic Code(s): D64.9 - Anemia, unspecified Status: Acute (3) Vaginal bleeding: Code(s): N93.9 - Abnormal uterine and vaginal bleeding, unspecified Status: Acute (4) Fibroids: Code(s): D21.9 - Benign neoplasm of connective and other soft tissue, unspecified Status: Acute DS: Summary Hospital Course Hospital Course: Admitted to the hospital with heavy bleeding. Hgb 6, received one unit of PRBCs. Post transfusion hgb 7.1. Had hysteroscopy / D&C / endometrial ablation. Postop pain kept her overnight, but she felt much better in the morning and was asking to go home. DS: Data Data Completed and Pending Pending studies at discharge: Pending at discharge 03/03/21 15:48 Surgical [PTH] Routine Labs on day of discharge: Labs from last 24 hours 03/03/21 03/03/21 03/03/21 17:59 11:45 11:45 Hgb 7.1 L 6.1 L* Hct 21.5 L 18.7 L* Blood Type A Positive Antibody Screen Negative Crossmatch See Detail Discharge Plan Discharge Attending physician on discharge: Ángel Lam Discharging Clinician: Ángel Lam Patient Disposition: Home, Self-Care Activity: may shower and pelvic rest Diet: regular Discharge Instructions: Call or return if temperature above 100.4? F, increased abdominal pain, increased vaginal bleeding or any new problems. Stand Alone Forms: General Discharge Information Follow-up/Referrals: Ángel Lam MD [Physician] - Keep Reg. Scheduled Appt. Discharge Medications: New hydrocodone-acetaminophen 5-325 mg tablet 1 - 2 tablet PO Q6H PRN (Reason: pain) Qty: 30 RF: 0 Continued lisinopril-hydrochlorothiazide 20-12.5 mg tablet 1 tablet PO QAM RF: 0 amlodipine 5 mg tablet 5 mg PO QAM RF: 0 multivitamin Tablet 1 tablet PO DAILY RF: 0 loratadine [Claritin] 10 mg Tablet 10 mg PO DAILY RF: 0 ezetimibe 10 mg tablet 10 mg PO QAM RF: 0 ferrous gluconate 324 mg (38 mg iron) tablet 324 mg PO DAILY RF: 0 Discontinued Nortrel (28) 1-35 mg-mcg tablet 1 tablet PO BID RF: 0 Date of admission: 03/02/21 16:31 Primary Care Provider: Antonio,Denise Neri Admitting Provider: Ángel Lam Attending physician on admission: Ángel Lam Condition: Stable
== END 2021-03-04 12:30 | disposition home or self-care (01) | DRG 742 ==
LOC: ANHED 15:02 → ANH3MED 18:14
PROVIDERS: Family Medicine; Admitting Provider Obstetrics & Gynecology; Emergency Provider Emergency Medicine; PCP Internal Medicine; Visit Provider Obstetrics & Gynecology
PROC: 0U5B8ZZ Destruction of Endometrium, Via Natural or Artificial Opening Endoscopic (ICD-10-PCS; CPT 58563; principal; 2021-03-03 14:30)
DX: N93.8 Other specified abnormal uterine and vaginal bleeding (principal); D62 Acute posthemorrhagic anemia; N92.1 Excessive and frequent menstruation with irregular cycle; D25.9 Leiomyoma of uterus, unspecified; E78.5 Hyperlipidemia, unspecified; I10 Essential (primary) hypertension; M25.552 Pain in left hip; Z79.899 Other long term (current) drug therapy; Z88.1 Allergy status to other antibiotic agents; Z88.2 Allergy status to sulfonamides
CPT/HCPCS: 36415; 36430; 76830; 76856; 85014; 85018; 85025; 86850; 86900; 86901; 86923; 88305; 88342; 93971; 99285; A9270; J0131; J1885; J2001; J2250; J2405; J2704; J3010; J7030; J7050; J7120; P9016

== ENCOUNTER → 2021-03-28 01:32 | Outpatient (CLI) | payer OTHER, SELFPAY ==
[2021-03-28 19:55] LABS: SARS-CoV-2 RNA PCR Negative
== END ==
PROVIDERS: PCP Internal Medicine; Visit Provider Obstetrics & Gynecology
DX: Z01.812 Encounter for preprocedural laboratory examination (principal); Z20.822 Contact with and (suspected) exposure to COVID-19
CPT/HCPCS: C9803; U0003; U0005

== ENCOUNTER 2021-03-30 08:31 | Outpatient (CLI) | payer OTHER, SELFPAY ==
[2021-03-30 09:11] LABS: Hematocrit 31.7 % (37.0-47.0); Hemoglobin 9.7 g/dL (12.0-15.0)
== END 2021-03-30 08:32 | disposition home or self-care (01) ==
LOC: ANHSURGERY 08:33
PROVIDERS: Anesthesiology; PCP Internal Medicine; Visit Provider Obstetrics & Gynecology
DX: D21.9 Benign neoplasm of connective and other soft tissue, unspecified (principal); D64.9 Anemia, unspecified; Z01.818 Encounter for other preprocedural examination
CPT/HCPCS: 36415; 85014; 85018; 86850; 86900; 86901

== ENCOUNTER 2021-04-01 15:49 | Inpatient (IN) | payer OTHER, SELFPAY ==
[2021-03-24 13:10] VITALS: BMI 34.0
[2021-04-01] VITALS (11 sets, daily range): BP systolic 90–126; BP diastolic 44–65; PULSE 58–90; RESP 10–20; TEMP 36.2–36.8; O2SAT 94–100
--- NOTE | 2021-04-01 08:09 | PM.IMHP ---
H&P: HPI History of Present Illness Date/Time: 04/01/21 08:09 40 y/o with menometrorrhagia and a fibroid uterus. Had a heavy episode of vaginal bleeding requiring transfusion last month. Now here for definitive management with hysterectomy. Endometrial curettings were benign. Chief Complaint: Here for surgery Review of Systems Review of Systems: All systems reviewed & are unremarkable except as noted in HPI and below PMFSH Past Medical History Medical History Anxiety Fasciculations patient has daily whole body fasciculations - was told it was not a seizure and does not lose consciousness Fibroids Hyperlipidemia Hypertension Palpitations 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 History Family History Grandparent Family history of cardiovascular disease Bladder cancer Colon cancer Father Lung cancer Hypertension Father No problems noted. Social History Social History Smoking status: Never smoker Alcohol intake: current Drinks per week: 3 Substance use: never Substance use type: does not use Living arrangements: with family Additional living arrangements comments: SP[facility]SE AND 3 CHILDREN Gender identity (if verbalized by the patient): Female Spiritual care concerns: No Meds Home Medications and Allergies Home Medications Medication Instructions Recorded Confirmed Type amlodipine 5 mg PO QAM 08/21/20 03/24/21 History lisinopril-hydrochlorothiazide 1 tablet PO QAM 08/21/20 03/24/21 History ezetimibe 10 mg PO QAM 09/30/20 03/24/21 History multivitamin 1 tablet PO DAILY 09/30/20 03/24/21 History ferrous gluconate 324 mg PO DAILY 03/02/21 03/24/21 History cetirizine [Zyrtec] 10 mg PO DAILY 03/24/21 03/24/21 History Allergies Allergy/AdvReac Type Severity Reaction Status Date / Time cefaclor Allergy Unknown Rash Verified 03/24/21 13:08 Sulfa (Sulfonamide Allergy Unknown Rash Verified 03/24/21 13:08 Antibiotics) diphenoxylate AdvReac Intermediate SWELLING Verified 03/24/21 13:08 OF JOINTS ciprofloxacin AdvReac Unknown JOINT Verified 03/24/21 13:08 SWELLING Vital Signs AVSS Exam Const: Orientation/consciousness: patient oriented x3 Other: Well-developed, well-nourished female in no acute distress. Neck: Thyroid: thyroid normal Lymphatic: no lymphadenopathy noted (in neck, axilla or inguinal nodes) Resp: Effort & Inspection: normal respiratory effort Auscultation: clear to auscultation bilaterally Cardio: Rate: regular rate Rhythm: regular rhythm Heart sounds: S1 normal heart sound present and S2 normal heart sound present GI: Other: ABD: Soft, nontender, nondistended. No guarding or rebound tenderness. No hepatosplenomegaly. : General: Yes no CVA tenderness Other: External genitalia: normal female hair distribution, without lesion. Urethral meatus: no lesion, non prolapsed. Bladder: no mass, nontender Vagina: well-estrogenized, without lesion or discharge. No cystocele or rectocele. Cervix: no lesion or discharge. Uterus: small, anteverted, freely mobile, nontender Adnexa: no mass or tenderness. Anus/perineum: no lesions, nontender Back/Spine/Pelvis: Back: no CVA tenderness Skin: General skin exam: normal color and no rashes or lesions noted Neuro: General: patient oriented x3 Extrem: Other: Extremities: nontender with no edema Psych: Mental Status: mental status grossly normal Affect: normal affect Assessment and Plan Assessment and plan (1) Fibroid uterus: Code(s): D25.9 - Leiomyoma of uterus, unspecified Status: Acute Assessment and Plan: A: Fibroid u
[2021-04-01] MEDS: ACETAMINOPHEN 500 MG TABLET 1000 MG PO (10:35)
[2021-04-01] MEDS: LACTATED RINGERS 1,000 ML 30 ML IV CONT ×2 (10:54→14:14)
[2021-04-01] MEDS: KETOROLAC 15 MG/ML VIAL (*BKC) IV PUSH (10:55)
--- NOTE | 2021-04-01 10:56 | WPDANESEPPF ---
Anes - Initial Pre Proc Eval Procedure: Operation Date: 04/01/21 12:00 Proposed Procedures p Robotic Assisted Total Vaginal Hysterectomy, Bilateral Salpingectomy - Ángel Lam MD Date/Time: 04/01/21 10:56 Surgeon: Ángel Lam MD Pre Op Diagnosis: enlarged uterus, pelvic pain, fibroids Patient Data Age: 40 Gender: F Height: 5 ft 9 in Weight: 106.2 kg Last Vital Signs Temp 36.8 C 04/01/21 10:05 Pulse 73 04/01/21 10:05 Resp 16 04/01/21 10:05 BP 126/61 04/01/21 10:05 Pulse Ox 99 04/01/21 10:05 Allergies Allergy/AdvReac Type Severity Reaction Status Date / Time cefaclor Allergy Unknown Rash Verified 04/01/21 10:27 Sulfa (Sulfonamide Allergy Unknown Rash Verified 04/01/21 10:27 Antibiotics) diphenoxylate AdvReac Intermediate SWELLING Verified 04/01/21 10:27 OF JOINTS ciprofloxacin AdvReac Unknown JOINT Verified 04/01/21 10:27 SWELLING Home Medications Medication Instructions Recorded Confirmed Type amlodipine 5 mg PO QAM 08/21/20 04/01/21 History lisinopril-hydrochlorothiazide 1 tablet PO QAM 08/21/20 04/01/21 History ezetimibe 10 mg PO QAM 09/30/20 04/01/21 History multivitamin 1 tablet PO DAILY 09/30/20 04/01/21 History ferrous gluconate 324 mg PO DAILY 03/02/21 04/01/21 History cetirizine [Zyrtec] 10 mg PO DAILY 03/24/21 04/01/21 History Patient hx anesthesia problems: none Family hx anesthesia problems: none PMFSH Past Medical History Medical History Anxiety Fasciculations patient has daily whole body fasciculations - was told it was not a seizure and does not lose consciousness Fibroids Hyperlipidemia Hypertension Palpitations 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 History Family History Grandparent Family history of cardiovascular disease Bladder cancer Colon cancer Father Lung cancer Hypertension Father No problems noted. Social History Social History Smoking status: Never smoker Alcohol intake: current Drinks per week: 3 Substance use: never Substance use type: does not use Living arrangements: with family Additional living arrangements comments: SP[facility]SE AND 3 CHILDREN Gender identity (if verbalized by the patient): Female Spiritual care concerns: No Anes - Eval Final PreProcedure Day of Procedure 04/01/21 10:56 Patient weight: obese Heart: regular rate and rhythm Lungs: clear to auscultation Airway: Mallampati scale class II Neurological: alert and oriented Last oral intake: >/= 8 hours ASA classification: III Emergent: no Anesthetic plan: proceed Anesthesia type and monitoring: general ETT and standard monitoring Informed Consent: The patient's anesthetic plan and its attendant risks and benefits were discussed with the patient/family/POA. Questions were solicited and answers provided to the satisfaction of the patient/family/POA.
--- NOTE | 2021-04-01 11:56 | WPDHPUPDATE1 ---
History and Physical Update Update Date/Time: 04/01/21 11:56 History and Physical has been reviewed, including an updated exam of the patient. There are NO changes in the patient's condition. Risks, benefits, and alternatives have been discussed and questions answered. Patient agrees to proceed with procedure.
[2021-04-01] MEDS: CLINDAMYCIN 900 MG/D5W 50 ML 900 MG/50 ML PIGGYBACK 50 MG IVPB (12:08)
[2021-04-01] MEDS: GENTAMICIN SULFATE INJ 530 MG in DEXTROSE 5% 100 ML 113.25 MG IVPB (12:30)
--- NOTE | 2021-04-01 13:59 | PM.PROC ---
Procedure Note - Detailed Date of procedure: 04/01/21 Pre-op diagnosis: enlarged uterus, pelvic pain, fibroids Menometrorrhagia Uterine fibroids Anemia resulting from acute blood loss Post-op diagnosis: same Procedure performed: Robotic assisted total vaginal hysterectomy Description of procedure: The patient was taken to the operating room where general endotracheal anesthesia was administered. She was prepared and draped in the usual sterile fashion in the dorsal lithotomy position. The bladder was drained with Park catheter. The cervix was visualized and the anterior lip was grasped using a single-tooth tenaculum. The cervix was gently dilated using Hegar dilators. The STEPH 2 uterine manipulator was then placed and the tenaculum was removed. Gloves were changed and attention was turned to the abdomen. A supraumbilical skin incision was made with the scalpel. The Veress needle was advanced and pneumoperitoneum was administered using carbon dioxide gas. The bladeless trocar was then advanced. Intraperitoneal placement was confirmed using the laparoscope. Lateral ports and an assistant federal public defender port were all placed using bladeless trocars under direct laparoscopic visualization. She was placed in Trendelenburg position and the patient cart was docked. I assumed the console. The adhesions between the omentum and the anterior abdominal wall were divided and the pelvis was able to be adequately visualized. The ureters were visualized bilaterally. The round ligament on the right was divided. The uteroovarian ligament was divided. The broad ligament was divided, skeletonizing the uterine artery on the right. The bladder was reflected away. The left side was similarly dissected. Colpotomy was performed circumferentially. The specimen was removed and passed off to be sent to pathology. The vaginal cuff was reapproximated using 0 Vicryl in interrupted [id number] fashion. The pelvis was irrigated copiously using warmed normal saline. Rigorous hemostasis was assured. HemaDerm was applied to the vaginal cuff. The pedicles were inspected once again. The ports were then withdrawn and the gas was allowed to escape. The skin incisions were reapproximated using 4 0 Monocryl in interrupted subcuticular fashion. Dermaflex was applied externally. Sponge, lap, needle and instrument counts were correct. The patient was awakened and taken to the recovery room in stable condition. I was present and scrubbed through the entire procedure. Implants: None Anesthesia: GETA Surgeon: Ángel Lam MD Estimated blood loss (mL): 100 Drains: Yes (park) Packing: No Pathology: yes (Uterus, cervix, bilateral Fallopian tubes) Complications: None Condition: stable Disposition: PACU Findings: Adhesions between the omentum and the anterior abdominal wall. Adhesions in the right upper quadrant. Normal-appearing ovaries. Uterus a little enlarged, but otherwise unremarkable uterus, tubes, anterior and posterior cul-de-sac, bilateral round and uterosacral ligaments.
--- NOTE | 2021-04-01 14:03 | PM.DS ---
DS: Admitting Diagnosis Admitting Diagnosis Admitting Diagnosis: Menometrorrhagia Fibroid uterus Anemia resulting from blood loss DS: Discharge Diagnosis Discharge Diagnosis (1) Menometrorrhagia: Code(s): N92.1 - Excessive and frequent menstruation with irregular cycle Status: Acute (2) Fibroid uterus: Code(s): D25.9 - Leiomyoma of uterus, unspecified Status: Acute (3) Anemia associated with acute blood loss: Code(s): D62 - Acute posthemorrhagic anemia Status: Acute (4) Postoperative pain: Code(s): G89.18 - Other acute postprocedural pain Status: Acute DS: Summary Hospital Course Hospital Course: Admitted to the hospital on the date of scheduled surgery. Please see op note for details. Did well postop and was able to go home. DS: Data Data Completed and Pending Pending studies at discharge: Pending at discharge 04/01/21 13:19 Surgical [PTH] Routine Discharge Plan Discharge Attending physician on discharge: Ángel Lam Discharging Clinician: Ángel Lam Patient Disposition: Home, Self-Care Activity: may shower, may drive after 2 weeks and pelvic rest Diet: regular Wound Care Instructions: incision open to air Discharge Instructions: Call or return if temperature above 100.4? F, increased abdominal pain, increased vaginal bleeding or any new problems. Stand Alone Forms: General Discharge Instructions Follow-up/Referrals: Ángel Lam MD [Physician] - 2 Weeks Discharge Medications: New hydrocodone-acetaminophen 5-325 mg tablet 1 - 2 tablet PO Q6H PRN (Reason: pain) Qty: 30 RF: 0 No Action lisinopril-hydrochlorothiazide 20-12.5 mg tablet 1 tablet PO QAM RF: 0 amlodipine 5 mg tablet 5 mg PO QAM RF: 0 multivitamin Tablet 1 tablet PO DAILY RF: 0 ezetimibe 10 mg tablet 10 mg PO QAM RF: 0 cetirizine [Zyrtec] 10 mg Tablet 10 mg PO DAILY RF: 0 ferrous gluconate 324 mg (38 mg iron) tablet 324 mg PO DAILY RF: 0 Date of admission: 04/01/21 15:49 Primary Care Provider: BrandinDenise Admitting Provider: Ángel Lam Attending physician on admission: Ángel Lam Condition: Stable
[2021-04-01] MEDS: HYDROmorphone HCL INJ (*CRX) 1 MG/ML SYR 0.25 MG IV PUSH ×8 (14:21→14:58)
[2021-04-01] MEDS: diphenhydrAMINE HCl INJ 50 MG/ML VIAL 25 MG IV PUSH (15:00)
[2021-04-01] MEDS: ONDANSETRON INJ 4 MG/2 ML VIAL IV PUSH ×2 (15:18→21:08)
[2021-04-01] MEDS: MIDAZOLAM HCL (*CRX) 2 MG/2 ML VIAL 1 MG IV PUSH (15:24)
--- NOTE | 2021-04-01 15:56 | ADMGEN ---
This patient, Charlette Montero, was admitted to 2nd floor OB per bed. Family oriented to hospital policies and general routines including ID bracelet, bed and alarms, visiting hours, pain management, procedures, bathroom and other care routines, personal items, smoking policy, room service/diet, and visiting hours. Information on how to activate the Rapid Response Team has been discussed. Patient/Family are encouraged to report perceived risks to care and to ask questions if they do not understand what they are told or what they should do.
[2021-04-01] MEDS: DEXTROSE 5%/0.45% SOD CHL 1,000 ML 125 ML IV CONT (16:23)
[2021-04-01] MEDS: KETOROLAC 30 MG/ML VIAL (*BKC) IV PUSH (18:27)
[2021-04-01] MEDS: METOCLOPRAMIDE HCL INJ 10 MG/2 ML VIAL IV PUSH (18:27)
[2021-04-01] MEDS: HYDROcodone/acetaminophen (*CRX) 5-325 MG TABLET 1 TAB PO (21:05)
[2021-04-01] MEDS: ENOXAPARIN 40 MG/0.4 ML SYRINGE SUB-Q (21:09)
[2021-04-02 04:00] VITALS: BP 105/61; PULSE 89; RESP 14; TEMP 36.8; O2SAT 98
[2021-04-02] MEDS: HYDROcodone/acetaminophen (*CRX) 5-325 MG TABLET 1 TAB PO ×2 (04:18→08:10)
[2021-04-02] MEDS: KETOROLAC 30 MG/ML VIAL (*BKC) IV PUSH (04:19)
[2021-04-02 05:52] LABS: Basophils Percent Auto 0.2 % (0.2-1.2); Hematocrit 26.2 % (37.0-47.0); Hemoglobin 8.1 g/dL (12.0-15.0); Immature Granulocyte Absolute 0.06 K/mm3 (0.00-0.031); Immature Granulocyte Percent A 0.5 % (0-0.5); Lymphocytes Absolute Auto 1.18 K/mm3 (0.9-3.2); Lymphocytes Percent Auto 9.3 % (18.3-44.2); Mean Corpuscular HGB Conc 30.9 g/dl (32-36); Mean Corpuscular Hemoglobin 25.3 pg (26-34); Mean Corpuscular Volume 81.9 fl (80-100); Mean Platelet Volume 9.6 fl (7.4-10.4); Monocytes Percent Auto 8.1 % (2.6-8.5); Neutrophils Absolute Auto 10.3 K/mm3 (1.3-6.7); Neutrophils Percent Auto 81.9 % (45.5-73.1); Platelet Count Result 355 k/mm3 (150-375); Red Cell Distribution Width 13.2 % (11.5-14.5); White Blood Count 12.6 K/mm3 (4.5-10.0)
[2021-04-02 07:45] VITALS: BP 103/59; PULSE 70; RESP 18; TEMP 36.3; O2SAT 99
[2021-04-02] MEDS: DOCUSATE SODIUM 100 MG CAPSULE PO (08:10)
[2021-04-02 08:15] VITALS: PULSE 81; RESP 16; O2SAT 98
--- NOTE | 2021-04-02 09:01 | PM.GYNPNOP ---
SENIOR TRAINING SPECIALIST - A/P Postoperative Procedures: Procedures Operation Date: 04/01/21 12:00 Actual Procedure Side Surgeon p Robotic Assisted Total Vaginal Hysterectomy, Bilateral Salpingectomy Ángel Lam MD A: POD#1, doing well. P: Home to f/u 2 weeks. Time Spent With Patient Time with patient: less than 15 minutes SENIOR TRAINING SPECIALIST- PN:Subj Post-Op Subjective Date/time seen: 04/02/21 09:01 Interval history: Pain OK. Tolerating diet. Voiding. Would like to go home. Exam Narrative: Exam Narrative: AVSS I/O OK ABD soft, nontender. Incisions c/d/i. EXT nontender SENIOR TRAINING SPECIALIST - PN: Obj Data Vital Signs Vital Signs: Vital Signs - 24 hr 04/01/21 10:05 04/01/21 14:14 04/01/21 14:25 Temperature 36.8 C 36.4 C L Pulse Rate 73 76 68 Respiratory Rate 16 10 L 16 Blood Pressure 126/61 94/55 L 94/56 L Pulse Oximetry 99 98 100 04/01/21 14:40 04/01/21 14:55 04/01/21 15:10 Temperature Pulse Rate 80 68 58 L Respiratory Rate 14 14 12 Blood Pressure 99/44 L 98/52 L 107/54 L Pulse Oximetry 100 94 97 04/01/21 15:25 04/01/21 15:40 04/01/21 16:15 Temperature 36.5 C 36.2 C L Pulse Rate 87 73 80 Respiratory Rate 20 14 14 Blood Pressure 90/65 L 101/55 L 106/62 Pulse Oximetry 100 99 100 04/01/21 21:05 04/01/21 22:45 04/02/21 04:00 Temperature 36.5 C 36.4 C L 36.8 C Pulse Rate 74 90 89 Respiratory Rate 12 16 14 Blood Pressure 105/58 L 96/54 L 105/61 Pulse Oximetry 100 99 98 04/02/21 07:45 04/02/21 08:15 Temperature 36.3 C L Pulse Rate 70 81 Respiratory Rate 18 16 Blood Pressure 103/59 L Pulse Oximetry 99 98 Intake/Output Intake/Output: Intake & Output 03/30/21 03/31/21 04/01/21 04/02/21 23:59 23:59 23:59 23:59 Intake Total 2543.25 Output Total 1540 1150 Balance 1003.25 -1150 Meds/Results Medications: Active Medications Generic Name Dose Route Start Last Admin Trade Name Freq PRN Reason Stop Dose Admin Hydrocodone Bitart/Acetaminophen 1 tab 04/01/21 15:49 04/02/21 08:10 Hydrocodone/Acetaminophen (*Crx) 5-325 Mg Tablet PO 1 tab Q3H PRN Administration Pain Rated 5 or Less Hydrocodone Bitart/Acetaminophen 1 tab 04/01/21 15:49 Hydrocodone/Acetaminophen (*Crx) 10-325 Mg Tablet PO Q3H PRN Pain Rated 6 or Greater Amlodipine Besylate 5 mg 04/02/21 09:00 04/02/21 08:12 Amlodipine Besylate 5 Mg Tablet PO Not Given QAM BRITTANIE Docusate Sodium 100 mg 04/01/21 17:00 04/02/21 08:10 Docusate Sodium 100 Mg Capsule PO 100 mg BID BRITTANIE Administration Enoxaparin Sodium 40 mg 04/01/21 21:00 04/01/21 21:09 Enoxaparin 40 Mg/0.4 Ml Syringe SUB-Q 40 mg DAILY@2100 BRITTANIE Administration Hydrochlorothiazide 12.5 mg 04/02/21 09:00 04/02/21 08:12 Hydrochlorothiazide 12.5 Mg Capsule PO 05/02/21 09:01 Not Given QAM BRITTANIE Dextrose/Sodium Chloride 1,000 mls @ 125 mls/hr 04/01/21 15:49 04/01/21 23:00 Dextrose 5% Sodium Chloride 0.45% IV CONT Infused .Q8H BRITTANIE Infusion Ibuprofen 600 mg 04/01/21 15:49 Ibuprofen 600 Mg Tablet PO Q6H PRN Cramping Ketorolac Tromethamine 30 mg 04/01/21 15:49 04/02/21 04:19 Ketorolac 30 Mg/Ml Vial (*Bkc) IV PUSH 04/06/21 15:50 30 mg Q6H PRN Administration Pain Rated 4-6 Lisinopril 20 mg 04/02/21 09:00 04/02/21 08:12 Lisinopril 20 Mg Tablet PO 05/02/21 09:01 Not Given QAM BRITTANIE Metoclopramide HCl 10 mg 04/01/21 15:49 04/01/21 18:27 Metoclopramide Hcl Inj 10 Mg/2 Ml Vial IV PUSH 10 mg Q6H PRN Administration Nausea Morphine Sulfate 4 mg 04/01/21 15:49 Morphine Sulfate (*Crx) 4 Mg/Ml Inj IV PUSH Q4H PRN Pain Rated 7-10 Naloxone HCl 0.1 mg 04/01/21 15:49 Naloxone Hcl 0.4 Mg/Ml Vial IV PUSH Q2M PRN Respiratory rate less than 10 Ondansetron HCl 4 mg 04/01/21 15:49 04/01/21 21:08 Ondansetron Inj 4 Mg/2 Ml Vial IV PUSH 4 mg Q6H PRN Administration Nausea Labs CBC & Chem 7: 04/02/21 04:12 Labs: Lab
[2021-04-02] MEDS: IBUPROFEN 600 MG TABLET PO (10:39)
--- NOTE | 2021-04-02 15:18 | P.PNAN_ITS ---
Anes - Prog Note Post-Op Date/Time: 04/02/21 15:18 Cardiovascular status: normal Respiratory status: normal Airway patency: baseline Mental status: baseline Post-Op hydration status: normal Vital Signs: Last Vital Signs Temp 36.3 C L 04/02/21 07:45 Pulse 81 04/02/21 08:15 Resp 16 04/02/21 08:15 BP 103/59 L 04/02/21 07:45 Pulse Ox 98 04/02/21 08:15 Pain Score (VAS): 0/10. Patient resting in bed at time of assessment, appears comfortable. Mild nausea with relief with prn meds. Support person at bedside. I/O: Intake & Output 04/01/21 04/02/21 04/02/21 23:59 07:59 15:59 Intake Total 1480 240 Output Total 1450 1150 Balance 30 -1150 240 Laboratory Tests 04/02/21 04:12 04/02/21 04:12 WBC 12.6 H RBC 3.20 L Hgb 8.1 L Hct 26.2 L MCV 81.9 MCH 25.3 L MCHC 30.9 L RDW 13.2 Plt Count 355 MPV 9.6 Immature Gran % (Auto) 0.5 Neut % (Auto) 81.9 H Lymph % (Auto) 9.[address] [place] % (Auto) 8.1 Eos % (Auto) 0.0 Baso % (Auto) 0.2 Lymph # (Auto) 1.18 [place] # (Auto) 1.0 H Eos # (Auto) 0.0 Baso # (Auto) 0.0 Abs Immat Gran (auto) 0.06 H Absolute Neuts (auto) 10.3 H Absolute Nucleated RBC 0.0 Nucleated RBC % 0.0 Post-procedural complaints: none and nausea (mild nausea with relief with prn meds. ) Patient Feedback: Patient satisfied with anesthetic care.
== END 2021-04-02 14:00 | disposition home or self-care (01) | DRG 742 ==
LOC: ANHOB2 19:05
PROVIDERS: Admitting Provider Obstetrics & Gynecology; PCP Internal Medicine; Visit Provider Obstetrics & Gynecology
PROC: 0UT9FZZ Resection of Uterus, Via Natural or Artificial Opening With Percutaneous Endoscopic Assistance (ICD-10-PCS; principal; 2021-04-01 12:00)
DX: D25.9 Leiomyoma of uterus, unspecified (principal); D62 Acute posthemorrhagic anemia; N92.1 Excessive and frequent menstruation with irregular cycle; I10 Essential (primary) hypertension; E78.5 Hyperlipidemia, unspecified; D18.02 Hemangioma of intracranial structures; F41.9 Anxiety disorder, unspecified; E66.9 Obesity, unspecified; Z68.34 Body mass index [BMI] 34.0-34.9, adult
CPT/HCPCS: 36415; 85025; 88307; A9270; J0330; J1100; J1170; J1200; J1580; J1650; J1885; J2250; J2370; J2405; J2765; J3010; J7030; J7120

== ENCOUNTER → 2021-06-02 17:20 | Outpatient (CLI) | payer OTHER, SELFPAY ==
--- NOTE | ~2021-06-02 | MM_ITS ---
EXAMINATION: MM screening jeanie BI w yomaira HISTORY: Screening mammogram TECHNIQUE: Craniocaudal and mediolateral oblique 3-D tomosynthesis images were obtained and synthetic 2-D images were generated. CAD analysis was submitted and interpreted. COMPARISON: 05/26/2020, 05/22/2019 bilateral digital screening mammogram examinations BREAST PARENCHYMAL COMPOSITION: The breasts are almost entirely fatty. FINDINGS: There is a biopsy marker on the right. History of prior benign right breast biopsy in 2017. There is no evidence of suspicious mass, calcification, or architectural distortion to suggest malig garcía in either breast. There has been no suspicious interval change. IMPRESSION: 1. No mammographic evidence of malignancy. 2. Recommend routine screening mammography in one year. BI-RADS Category 1: Negative Reviewed, dictated and finalized at location A.
== END ==
PROVIDERS: PCP Internal Medicine; Visit Provider Internal Medicine
DX: Z12.31 Encounter for screening mammogram for malignant neoplasm of breast (principal)
CPT/HCPCS: 77063; 77067

== ENCOUNTER → 2021-09-12 08:22 | Outpatient (CLI) | payer OTHER, SELFPAY ==
[2021-09-12 17:39] LABS: SARS-CoV-2 RNA PCR Negative
== END ==
PROVIDERS: PCP Internal Medicine
DX: J02.9 Acute pharyngitis, unspecified (principal); Z20.822 Contact with and (suspected) exposure to COVID-19
CPT/HCPCS: C9803; U0003; U0005

== ENCOUNTER 2022-10-08 10:04 | Emergency (ER) | payer OTHER, SELFPAY ==
--- NOTE | ~2022-10-08 | XR_ITS ---
EXAMINATION: XR chest 2V DATE: 10/08/2022 10:38 INDICATION: Productive cough TECHNIQUE: PA and lateral views of the chest are obtained. COMPARISON: None available FINDINGS: The lungs are free of acute opacities. No pleural effusion or pneumothorax. The cardiomedia stinal silhouette is normal. There is thoracolumbar levocurvature. There is mild thoracic spondylosis . IMPRESSION: 1. No acute cardiopulmonary abnormality. Reviewed, dictated and finalized at location A. IMAGING
[2022-10-08 10:13] VITALS: BP 143/77; PULSE 90; RESP 18; TEMP 36.6; O2SAT 99
--- NOTE | 2022-10-08 10:30 | ED.URI ---
HPI - URI/Sore Throat General Chief Complaint: Upper Respiratory Infection Stated Complaint: Congestion,Rt Ear Irritation,Cough Time Seen by Provider: 10/08/22 10:21 Source: patient Mode of arrival: ambulatory Limitations: no limitations History of Present Illness HPI Narrative: Patient presents today complaining of a 2 week history of nasal congestion, cough, and right ear clogging. She had a telemedicine visit 2 weeks ago was placed on doxycycline which she finished yesterday. She talked to her PCP several days ago and was placed on prednisone and she is on day 3-4 of this and states it is not helping. She is also taking Flonase and Sudafed without relief. She also reports some wheezing. Denies any history of asthma or COPD. Related Data Home Medications Medication Instructions Recorded Confirmed amlodipine 5 mg tablet 5 mg PO QAM 08/21/20 10/08/22 lisinopril 20 1 tablet PO QAM 08/21/20 10/08/22 mg-hydrochlorothiazide 12.5 mg tablet ezetimibe 10 mg tablet 10 mg PO QAM 09/30/20 10/08/22 multivitamin 1 tablet PO DAILY 09/30/20 10/08/22 ferrous gluconate 324 mg (38 mg 324 mg PO DAILY 03/02/21 10/08/22 iron) tablet cetirizine 10 mg tablet (Zyrtec) 10 mg PO DAILY 03/24/21 10/08/22 Allergies Allergy/AdvReac Type Severity Reaction Status Date / Time diphenoxylate AdvReac Intermediate SWELLING Verified 10/08/22 10:09 OF JOINTS cefaclor AdvReac Mild Rash Verified 10/08/22 10:09 Sulfa (Sulfonamide AdvReac Mild Rash Verified 10/08/22 10:09 Antibiotics) ciprofloxacin AdvReac Unknown JOINT Verified 10/08/22 10:09 SWELLING Review of Systems Review of Systems: CONSTITUTIONAL: Denies body aches, fever, chills, or sweats. EYES: Denies visual changes, redness, or discharge. ENT: Denies rhinorrhea, sore throat. + Congestion, right ear clogging CARDIOVASCULAR: Denies chest pain, palpitations, or edema. RESPIRATORY: + cough, wheezing. GASTROINTESTINAL: Denies abdominal pain, nausea, vomiting, or diarrhea. GENITOURINARY: Denies dysuria or hematuria. SKIN: Denies rash, itching, or wounds. MUSCULOSKELETAL: Denies back pain, joint pain, or myalgia. NEUROLOGIC: Denies headache, numbness, tingling, or weakness. PSYCH: Denies depression or anxiety. [facility] Past Medical History Medical History Anxiety Fasciculations patient has daily whole body fasciculations - was told it was not a seizure and does not lose consciousness Fibroids Hyperlipidemia Hypertension Palpitations 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 History Family History Grandparent Family history of cardiovascular disease Bladder cancer Colon cancer Father Lung cancer Hypertension Father No problems noted. Social History Social History Smoking status: Never smoker Alcohol intake: current Drinks per week: 2 Substance use: never Substance use type: does not use Additional living arrangements comments: SPOUSE AND 3 CHILDREN Gender identity (if verbalized by the patient): Female Spiritual care concerns: No Comments At time of signature, I have reviewed and agree with nursing past medical, surgical, social and family history unless otherwise noted. Please see nursing chart for further information. There is no relevant family history pertinent to the presenting complaint Exam Narrative: GENERAL: Well-appearing, well-nourished, and in no acute distress. HEAD: Normocephalic, atraumatic. EYES: EOMI. No redness or drainage. Conjunctivae normal. ENT: Mucous membranes pink and moist. Nares clear. No rhinorrhea. TMs normal bilaterally. Throat
== END 2022-10-08 11:10 | disposition home or self-care (01) ==
PROVIDERS: Emergency Provider Nurse Practitioner; PCP Internal Medicine
DX: J40 Bronchitis, not specified as acute or chronic (principal); J01.90 Acute sinusitis, unspecified; I10 Essential (primary) hypertension; E78.5 Hyperlipidemia, unspecified
CPT/HCPCS: 71046; 99213; G0463

== ENCOUNTER 2024-04-21 19:07 | Emergency (ER) | payer OTHER, SELFPAY ==
[2024-04-21 19:23] VITALS: BP 112/60; PULSE 67; RESP 16; TEMP 36.5; O2SAT 99
--- NOTE | 2024-04-21 19:46 | ED.SKABFB ---
HPI - Skin/Abscess/Foreign Bdy General Chief complaint: Skin/Abscess/Foreign Body Stated complaint: Bug Bites Time Seen by Provider: 04/21/24 19:28 Source: patient and RN notes reviewed Mode of arrival: ambulatory Limitations: no limitations History of Present Illness HPI narrative: Patient presents today complaining of a multiple bug bites to her trunk that she noted yesterday morning. Severe itching associated. She takes Zyrtec daily and has been using topical cortisone with mild relief. She presents today wanting to make sure that none of them are infected. Related Data Home Medications Medication Instructions Recorded Confirmed amlodipine 5 mg tablet 5 mg PO QAM 08/21/20 04/21/24 lisinopril 20 1 tablet PO QAM 08/21/20 04/21/24 mg-hydrochlorothiazide 12.5 mg tablet multivitamin 1 tablet PO DAILY 09/30/20 04/21/24 cetirizine 10 mg tablet (Zyrtec) 10 mg PO DAILY 03/24/21 04/21/24 buspirone 7.5 mg tablet 7.5 mg PO TID 04/21/24 04/21/24 rosuvastatin 5 mg tablet See Rx Instructions .Route .COMPLEX 04/21/24 04/21/24 Allergies Allergy/AdvReac Type Severity Reaction Status Date / Time ciprofloxacin AdvReac Intermediate JOINT Verified 04/21/24 19:09 SWELLING diphenoxylate AdvReac Intermediate SWELLING Verified 04/21/24 19:09 OF JOINTS cefaclor AdvReac Mild Rash Verified 04/21/24 19:09 Sulfa (Sulfonamide AdvReac Mild Rash Verified 04/21/24 19:09 Antibiotics) Review of Systems Review of Systems: CONSTITUTIONAL: Denies body aches, fever, chills, or sweats. EYES: Denies visual changes, redness, or discharge. ENT: Denies rhinorrhea, congestion, sore throat, or otalgia. CARDIOVASCULAR: Denies chest pain, palpitations, or edema. RESPIRATORY: Denies cough or dyspnea. GASTROINTESTINAL: Denies abdominal pain, nausea, vomiting, or diarrhea. GENITOURINARY: Denies dysuria or hematuria. SKIN: Insect bites. MUSCULOSKELETAL: Denies back pain, joint pain, or myalgia. NEUROLOGIC: Denies headache, numbness, tingling, or weakness. PSYCH: Denies depression or anxiety. PMFSH Past Medical History Medical History Anxiety Fasciculations patient has daily whole body fasciculations - was told it was not a seizure and does not lose consciousness Fibroids Hyperlipidemia Hypertension Palpitations 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 History Family History Grandparent Family history of cardiovascular disease Bladder cancer Colon cancer Father Lung cancer Hypertension Father No problems noted. Social History Social History Smoking status: Never smoker Alcohol intake: current Drinks per week: 2 Substance use: never Substance use type: does not use Living arrangements: with family Additional living arrangements comments: SPOUSE AND 3 CHILDREN Gender identity (if verbalized by the patient): Female Spiritual care concerns: No Comments At time of signature, I have reviewed and agree with nursing past medical, surgical, social and family history unless otherwise noted. Please see nursing chart for further information. There is no relevant family history pertinent to the presenting complaint Exam Narrative: GENERAL: Well-appearing, well-nourished, and in no acute distress. HEAD: Normocephalic, atraumatic. EYES: EOMI. No redness or drainage. Conjunctivae normal. ENT: Mucous membranes pink and moist. NECK: Normal AROM. CHEST: No respiratory distress. EXTREMITIES: Normal range of motion. No edema. SKIN: Warm, dry, no rash. Capillary refill normal. Normal skin turgor. Multiple insect bites over the ante
== END 2024-04-21 19:55 | disposition home or self-care (01) ==
PROVIDERS: Emergency Provider Nurse Practitioner; PCP Internal Medicine
DX: S20.369A Insect bite (nonvenomous) of unspecified front wall of thorax, initial encounter (principal); S20.469A Insect bite (nonvenomous) of unspecified back wall of thorax, initial encounter; W57.XXXA Bitten or stung by nonvenomous insect and other nonvenomous arthropods, initial encounter; E78.5 Hyperlipidemia, unspecified; I10 Essential (primary) hypertension; F41.9 Anxiety disorder, unspecified
CPT/HCPCS: 99213; G0463

== ENCOUNTER 2024-10-09 10:01 | Emergency (ER) | payer OTHER, SELFPAY ==
[2024-10-09 10:23] VITALS: BP 130/67; PULSE 66; RESP 20; TEMP 36.3; O2SAT 100
[2024-10-09 10:36] LABS: EDSTREPNEGPOS1 Negative (Negative)
--- NOTE | 2024-10-09 10:41 | ED_ITS ---
HPI - URI/Sore Throat General Chief Complaint: Upper Respiratory Infection Stated Complaint: Sore Throat Time Seen by Provider: 10/09/24 10:41 Source: patient, RN notes reviewed and old records reviewed Mode of arrival: ambulatory Limitations: no limitations History of Present Illness HPI Narrative: 43-year-old female presents to the [facility] with complaints of a sore throat that started on Tuesday. Denies any other symptoms. Has taken Tylenol and Motrin Related Data Home Medications Medication Instructions Recorded Confirmed amlodipine 5 mg tablet 5 mg PO QAM 08/21/20 10/09/24 lisinopril 20 1 tablet PO QAM 08/21/20 10/09/24 mg-hydrochlorothiazide 12.5 mg tablet multivitamin 1 tablet PO DAILY 09/30/20 10/09/24 cetirizine 10 mg tablet (Zyrtec) 10 mg PO DAILY 03/24/21 10/09/24 buspirone 7.5 mg tablet 10 mg PO BID 04/21/24 10/09/24 rosuvastatin 5 mg tablet See Rx Instructions .Route .COMPLEX 04/21/24 10/09/24 Allergies Allergy/AdvReac Type Severity Reaction Status Date / Time ciprofloxacin AdvReac Intermediate JOINT Verified 10/09/24 10:22 SWELLING diphenoxylate AdvReac Intermediate SWELLING Verified 10/09/24 10:22 OF JOINTS cefaclor AdvReac Mild Rash Verified 10/09/24 10:22 Sulfa (Sulfonamide AdvReac Mild Rash Verified 10/09/24 10:22 Antibiotics) Review of Systems Review of Systems: All systems reviewed & are unremarkable except as noted in HPI and below Constitutional: Constitutional: Reports no additional constitutional complaints ENT: Reports as per HPI and Reports sore throat Cardiovascular: Cardiovascular: Reports no additional cardiovascular complaints, Denies chest pain and Denies dyspnea Respiratory: Respiratory: Reports no additional respiratory complaints, Denies chest congestion, Denies cough and Denies dyspnea Gastrointestinal: Gastrointestinal: Reports no additional gastrointestinal complaints, Denies abdominal pain, Denies nausea and Denies vomiting Musculoskeletal: Musculoskeletal: Reports no additional musculoskeletal complaints Integumentary/Breasts: Skin/Breast: Reports system reviewed and no additional complaints, except as docu PMFSH Past Medical History Medical History Anxiety Fasciculations patient has daily whole body fasciculations - was told it was not a seizure and does not lose consciousness Fibroids Hyperlipidemia Hypertension Palpitations 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 History Family History Grandparent Family history of cardiovascular disease Bladder cancer Colon cancer Father Lung cancer Hypertension Father No problems noted. Social History Social History Smoking status: Never smoker Alcohol intake: current Drinks per week: 2 Substance use: never Substance use type: does not use Living arrangements: with family Additional living arrangements comments: SPOUSE AND 3 CHILDREN Gender identity (if verbalized by the patient): Female Spiritual care concerns: No Comments At the time of my signature, I reviewed and agree with the nursing past medical, surgical, social, and family history. There is no relevant family history pertinent to the patient complaint. Exam Const: General: cooperative, healthy appearing, comfortable, no acute distress, well developed, alert and well nourished Nutritional Appearance: well nourished Orientation/consciousness: patient oriented x3 Limitations: no limitations HENMT: Head: normal to inspection Ears: hearing grossly normal bilaterally, external ears normal, TM's normal bilaterally, EAC's normal and mastoids normal Face/Nose/Sinus: Normal external nose present, normal facial exam and face symmetric Face and sinus: normal facial exam and face symmetric Mouth: Yes Normal oral and palatal mucosa present, Yes lip normal and Yes tongue normal Throat: tonsils normal, uvula midline and no uvular edema Eyes: General: appearance normal, both eyes and all related structures Alignment and Position: alignment normal Periorbital: periorbital findings normal Neck: Neck: normal visual inspection, full ROM, no lymphadenopathy and no meningeal signs Chest: Chest palpation & inspection: normal inspection of the chest Resp: Effort & Inspection: normal respiratory effort and able to speak in complete sentences Auscultation: clear to auscultation bilaterally, no crackles, no rales, no rhonchi and no wheezes Cardio: Rate: regular rate Skin: General skin exam: normal color and no rashes or lesions noted Lesions: no lesions Rashes: no rashes Wounds: no wounds Neuro: General: patient oriented x3, gait normal, tone normal, moves all extremities and no meningeal signs Cognition (Neuro): normal cognition Speech: normal speech Gait exam (Neuro): Normal gait present Extrem: General: normal to inspection, full ROM, capillary refill normal and normal gait Psych: Appearance: grossly normal and well kempt Mental Status: mental status grossly normal Speech and movement: Normal speech and movement present and Clear speech present Affect: normal affect Attitude: cooperative Course Course Level of Care: Express Care Visit Vital Signs Vital signs: Vital Signs Temperature 97.3 F L 10/09/24 10:23 Pulse Rate 66 10/09/24 10:23 Respiratory Rate 20 10/09/24 10:23 Blood Pressure 130/67 10/09/24 10:23 Pulse Oximetry 100 10/09/24 10:23 Oxygen Delivery Room Air 10/09/24 10:23 Temperature 97.3 F L 10/09/24 10:23 Pulse Rate 66 10/09/24 10:23 Respiratory Rate 20 10/09/24 10:23 Blood Pressure 130/67 10/09/24 10:23 Pulse Oximetry 100 10/09/24 10:23 Oxygen Delivery Room Air 10/09/24 10:23 Reviewed MDM - URI/Sore Throat MDM Narrative Medical decision making narrative: Patient sitting comfortably in exam room. Nontoxic, vitals stable. Patient in no acute distress. Patient presents with sore throat. Strep test negative, will culture. No acute findings noted on exam. Patient appropriate for outpatient treatment and follow-up Discharge instructions reviewed with patient, as well as provided in writing per nursing staff. The instructions also include specific and strict return/GO TO THE ER as well as f/u information. All questions have been answered, and the patient deny any further questions with discharge and discharge plan. Some parts of this dictation were generated by voice recognition software and may contain typographical and/or grammatical inaccuracies. Differential Diagnosis Differential diagnosis: Likely upper respiratory infection, otitis media, viral infection and pharyngitis Lab Data Labs: Lab Results 10/09/24 Range/Units 10:35 POC Grp A Strep Screen Negative (Negative) Reviewed Critical Care Time Critical Care Time Critical Care Time: No Discharge Plan Discharge Clinical Impression: Pharyngitis Patient Disposition: Home, Self-Care Condition: Stable Instructions: Antibiotic Form, Pharyngitis (ED), Postnasal Drip (DC) Additional Instructions: Your rapid strep swab was negative today at [facility]. A throat culture will be sent to the laboratory for further testing. If the test is positive, you will receive a phone call within 48 hours and an appropriate antibiotic will be initiated at that time. Your symptoms are likely due to a viral illness, which is not treated with antibiotics. Typically viral infections last 7-10 days, can linger for couple of weeks. It is very important to treat your symptoms. Plenty of water, Gatorade, Pedialyte, ice pops or Jell-O. -Alternate Tylenol and Motrin per package directions for fever or pain. You can alternate every 4 hours -Antihistamine medication such as Benadryl at night and Zyrtec/Claritin/Luisa during the day can help improve symptoms. -doing daily nasal irrigations can help relieve pressure your sinuses. Things like a Neti pot -Use Flonase twice a day for 5 days then daily to help reduce the inflammation and dry up your sinuses. -You can also use Mucinex. Be sure to drink plenty of water with this medication at least 8 ounces with every dose and it is important to drink 8 to 10 glasses of water per day. Water is a natural decongestant -Eat and drink things that are easy to swallow, like tea or soup, or popsicles. -Oral rinses such as: Salt water gargles and/or may use topical anesthetic (eg. Chloraseptic spray) or lozenges to relieve dryness or throat pain). -Frequent hand washing or hand gas truck driver is one of the best ways to prevent spread of infection. -Using a vaporizer or humidifier at night will also help thin secretions and help with coughing up phlegm. -Follow up with primary care provider in 7-10 days if condition is not improving - For new or worsening symptoms go directly to the nearest ER Patient Language: Kyrgyz Prescriptions: No Action buspirone 7.5 mg tablet 10 mg PO BID rosuvastatin 5 mg tablet See Rx Instructions .ROUTE .COMPLEX Rx Instructions: 5 mg mon, wed and tuesday lisinopril-hydrochlorothiazide 20-12.5 mg tablet 1 tablet PO QAM amlodipine 5 mg tablet 5 mg PO QAM multivitamin Tablet 1 tablet PO DAILY cetirizine [Zyrtec] 10 mg Tablet 10 mg PO DAILY Follow-up/Referrals: Antonio,Denise Neri MD [Primary Care Provider] - 2 Weeks ([facility] follow up) Stand Alone Forms: Work/School Release IP Time of Disposition: 10:52
== END 2024-10-09 10:56 | disposition home or self-care (01) ==
PROVIDERS: Emergency Provider Nurse Practitioner; PCP Internal Medicine
DX: J02.9 Acute pharyngitis, unspecified (principal); E78.5 Hyperlipidemia, unspecified; I10 Essential (primary) hypertension; F41.9 Anxiety disorder, unspecified
CPT/HCPCS: 87081; 87880; 99213; G0463